=== PATIENT | male | born 1965 | race African-American/Black ===

== ENCOUNTER 2017-11-11 13:11 | Inpatient (IN) | payer OTHER ==
[2017-11-11 13:45] VITALS: BMI 27.5
--- NOTE | 2017-11-11 18:03 | HP ---
CIWA Score - CIWA Score Nausea/Vomitin Muscle Tremors: 3 Anxiety: 3 Agitation: 3 Paroxysmal Sweats: 3 Orientation: 0-Oriented Tacttile Disturbances: 1-Very Mild Itch/Numbness Auditory Disturbances: 0-None Visual Disturbances: 0-None Headache: 0-None Present CIWA-Ar Total Score: 16 Admission ROS S - HPI Allergies/Adverse Reactions: Allergies Allergy/AdvReac Type Severity Reaction Status Date / Time No Known Allergies Allergy Verified 11/11/17 16:06 History of Present Illness: "I am trying to get off these drugs and alcohol from my system' Exam Limitations: No Limitations - Ebola screening Have you traveled outside of the country in the last 21 days: No (N) Have you had contact with anyone from an Ebola affected area: No Have you been sick,other than usual withdrawal symptoms: No Do you have a fever: No - Review of Systems Constitutional: No Symptoms Reported EENT: reports: Other (wears bifocals) Respiratory: reports: No Symptoms reported Cardiac: reports: No Symptoms Reported GI: reports: Nausea : reports: No Symptoms Reported Musculoskeletal: reports: Back Pain (chronic pain) Integumentary: reports: No Symptoms Reported Neuro: reports: No Symptoms reported Endocrine: reports: No Symptoms Reported Hematology: reports: No Symptoms Reported Psychiatric: reports: Mood/Affect Appropiate, Orientated x3, Anxious Other Systems: Reviewed and Negative Patient History - Patient Medical History Hx Asthma: No Hx Chronic Obstructive Pulmonary Disease (COPD): No Hx Cancer: No Hx Cardiac Disorders: No Hx Hypertension: Yes (Norvasc, coreg, hydralazine, ASA) Hx Hypercholesterolemia: Yes Hx Pacemaker: No HX Cerebrovascular Accident: Yes (2012) Hx Seizures: No Hx Dementia: No Hx Diabetes: No Hx Gastrointestinal Disorders: No Hx Liver Disease: No Hx Genitourinary Disorders: No Hx Sexually Transmitted Disorders: No Hx Renal Disease (ESRD): No Hx Thyroid Disease: Yes (hyperparathyroidism) Hx Human Immunodeficiency Virus (HIV): No Hx Hepatitis C: No Hx Depression: Yes (Not on meds) Hx Suicide Attempt: No (denies curent SI) Hx Bipolar Disorder: No Hx Schizophrenia: No - Patient Surgical History Past Surgical History: No Hx Neurologic Surgery: No Hx Cataract Extraction: No Hx Cardiac Surgery: No Hx Lung Surgery: No Hx Breast Surgery: No Hx Breast Biopsy: No Hx Abdominal Surgery: No Hx Appendectomy: No Hx Cholecystectomy: No Hx Genitourinary Surgery: No Hx Section: No Hx Orthopedic Surgery: No Anesthesia Reaction: No - PPD History Previous Implant?: Yes Documented Results: Positive w/o proof (states he was treated x 6-9 months) Implanted On Prior R Admission?: No - Reproductive History Patient is a Female of Child Bearing Age (11 -55 yrs old): No - Smoking Cessation Smoking history: Smoker current status UNK Have you smoked in the past 12 months: Yes Aproximately how many cigarettes per day: 12 If you are a former smoker, when did you quit?: 2008 Hx Chewing Tobacco Use: No Initiated information on smoking cessation: Yes 'Breaking Loose' booklet given: 11/11/17 - Substance & Tx. History Hx Alcohol Use: Yes Hx Substance Use: Yes Substance Use Type: Alcohol, Cocaine - Substances Abused Alcohol Route: Oral Frequency: Daily Amount used: LIQUOR- 1 PINT, BEER- 2 (24oz) Age of first use: 23 Date of Last Use: 11/11/17 Cocaine Route: Smoking Frequency: Daily Amount used: 1/2 oz bag ($500) Age of first use: 22 Date of Last Use: 11/10/17 Family Disease History - Family Disease History Family Disease History: Heart Disease: Father (HTN) Admission Physical Exam BHS - Vital Signs Vital Signs: Vital Signs - 24 hr 11/11/17 13:44 Temperature 97.7 F Pulse Rate 98 H Respiratory 20 Rate Blood Pressure 111/68 - Physical General Appearance: Yes: Mild Distress, Sweating, Anxious HEENTM: Yes: Nasal Congestion Respiratory: Yes: Chest Non-Tender, Lungs Clear, No Respiratory Distress Neck: Yes: No masses,lesions,Nodules Breast: Yes: Breast Exam Deferred Cardiology: Yes: Regular Rate, S1, S2 Abdominal: Yes: Surgical Scar, Other (healed scar) Genitourinary: Yes: Within Normal Limits Back: Yes: Normal Inspection Musculoskeletal: Yes: Within Normal Limits Extremities: Yes: Within Normal Limits, Normal Range of Motion Neurological: Yes: Within Normal Limits, Motor Strength 5/5 Integumentary: Yes: Normal Color, Warm Lymphatic: Yes: Within Normal Limits - Diagnostic (1) Alcohol dependence, uncomplicated Current Visit: Yes Status: Acute (2) Cocaine dependence Current Visit: Yes Status: Acute (3) Essential (primary) hypertension Current Visit: Yes Status: Chronic (4) Hyperparathyroidism Current Visit: Yes Status: Acute (5) Depression Current Visit: Yes Status: Chronic (6) Post traumatic stress disorder (PTSD) Current Visit: Yes Status: Chronic BHS Breath Alcohol Content Breath Alcohol Content: 0.025 Urine Drug Screen - Results Drug Screen Negative: No Urine Drug Screen Results: MAURICE-Cocaine
[2017-11-11] MEDS ORDERED: hydrOXYzine PAMOATE 25 MG CAPSULE (FP) PO PRN (18:28)
[2017-11-11] MEDS ORDERED: IBUPROFEN 400 MG TABLET (FP) PO PRN (18:28)
[2017-11-11] MEDS ORDERED: P-EPHED 60MG/TRIPROLIDI 2.5MG TABLET PO PRN (18:28)
[2017-11-11] MEDS ORDERED: MAGNESIUM HYDROX 2400MG/30ML ORAL SUSPENSION 30 ML CUP PO PRN (18:28)
[2017-11-11] MEDS ORDERED: MAG HYDROX/AL HYDROX/SIMETH 30 ML UNIT-DOSE CUP PO PRN (18:28)
[2017-11-11] MEDS ORDERED: ACETAMINOPHEN 325 MG TABLET (FP) PO PRN (18:28)
[2017-11-11] MEDS ORDERED: MENTHOL/PHENOL 1 EACH UD MM PRN (18:28)
[2017-11-11] MEDS ORDERED: guaiFENesin/D-METHORPHAN HB 10 ML UNIT-DOSE CUPS PO PRN (18:28)
[2017-11-11] MEDS ORDERED: chlordiazePOXIDE HCL 25 MG CAPSULE PO PRN (18:28)
[2017-11-11] MEDS ORDERED: MAGNESIUM CITRATE 300 ML BOTTLE PO PRN (18:28)
[2017-11-11] MEDS ORDERED: LOPERAMIDE HCL 2 MG CAPSULE PO PRN (18:28)
[2017-11-11] MEDS: THIAMINE HCL 100 MG TABLET (FP) PO SCH (22:30)
[2017-11-11] MEDS: chlordiazePOXIDE HCL 25 MG CAPSULE PO SCH (22:30)
[2017-11-11] MEDS: CARVEDILOL 25 MG TABLET (FP) PO SCH (22:30)
[2017-11-11] MEDS: DOXAZOSIN MESYLATE 2 MG TABLET (FP) PO SCH (23:31)
[2017-11-11] MEDS: ROSUVASTATIN CA 20 MG TABLET (FP) PO SCH (23:31)
[2017-11-12] MEDS: chlordiazePOXIDE HCL 25 MG CAPSULE PO SCH ×4 (05:54→22:28)
[2017-11-12] MEDS ORDERED: hydrALAZINE HCL 50 MG TABLET (FP) PO SCH (10:00)
[2017-11-12 10:12] LABS: HEMATOCRIT 38.6 % (35.4-49); HEMOGLOBIN 13.3 GM/dL (11.7-16.9); MCHC 34.5 g/dl (32.0-35.9); MEAN CELL VOLUME 89.9 fl (80-96); MEAN PLT VOLUME 9.2 fl (7.5-11.1); PLATELET COUNT 196 K/MM3 (134-434); RDW 13.5 % (11.9-15.9); WHITE BLOOD COUNT 4.5 K/mm3 (4.0-10.0)
[2017-11-12 10:17] LABS: CHLORIDE 110 mmol/L (98-107); POTASSIUM 3.3 mmol/L (3.5-5.1); SODIUM 144 mmol/L (136-145)
[2017-11-12 10:28] LABS: ALBUMIN 3.5 g/dl (3.4-5.0); ALK PHOS 49 U/L (45-117); ANION GAP 7 (8-16); BILIRUBIN,TOTAL 0.3 mg/dL (0.2-1.0); BLOOD UREA NITROGEN 16 mg/dL (7-18); CALCIUM 8.8 mg/dL (8.5-10.1); CO2 27 mmol/L (21-32); CREATININE 1.1 mg/dL (0.7-1.3); GLUCOSE,RANDOM 95 mg/dL (74-106); SGOT/AST 10 U/L (15-37); SGPT/ALT 24 U/L (12-78)
--- NOTE | 2017-11-12 10:46 | CONSULT ---
[facility] Psychiatric Consult - Data Date of interview: 11/12/17 Admission source: [facility] Identifying data: "I am trying to get off these drugs and alcohol from my system '
--- NOTE | 2017-11-12 10:47 | CONSULT ---
[facility] Psychiatric Consult - Data Identifying data: This nis 51 years old obese male , , father of six, living with family, employed, is here for detoxification due to Alcohol depedndency. Substance Abuse History: - Smoking Cessation. Smoking history: Smoker current status UNK. Have you smoked in the past 12 months: Yes. Aproximately how many cigarettes per day: 12. If you are a former smoker, when did you quit?: 2008. Hx Chewing Tobacco Use: No. Initiated information on smoking cessation: Yes. ' Breaking Loose' booklet given: 11/11/17. - Substance & Tx. History. Hx Alcohol Use: Yes. Hx Substance Use: Yes. Substance Use Type: Alcohol, Cocaine. - Substances Abused. Alcohol. Route: Oral. Frequency: Daily. Amount used: LIQUOR- 1 PINT, BEER- 2 (24oz). Age of first use: 23. Date of Last Use: 11/11/17. Cocaine. Route: Smoking. Frequency: Daily. Amount used: 1/2 oz bag ($500). Age of first use: 22. Date of Last Use: 11/10/17 Medical History: Hyperthyroidism history Psychiatric History: Denies past psychiatric history, reports no psychiatric medications intake prior to admission. As per computer PTSD history Physical/Sexual Abuse/Trauma History: Denies Additional Comment: Observatrion. Detox Unit Care protocol Mental Status Exam - Mental Status Exam Alert and Oriented to: Person Cognitive Function: Fair Patient Appearance: Well Groomed Mood: Apprehensive Patient Behavior: Cooperative Speech Pattern: Appropriate Voice Loudness: Normal Thought Process: Goal Oriented Thought Disorder: Being Controlled Hallucinations: Denies Suicidal Ideation: Denies Homicidal Ideation: Denies Insight/Judgement: Fair Sleep: Difficulty falling asleep Appetite: Weight gain Muscle strength/Tone: Normal Gait/Station: Shuffling Additional Comments: Observatrion. Detox Unit Care protocol Psychiatric Findings - Problem List ([place] 1, 2,3) (1) Drug-induced mood disorder Current Visit: Yes Status: Acute (2) Alcohol dependence, uncomplicated Current Visit: Yes Status: Acute (3) Cocaine dependence Current Visit: Yes Status: Acute (4) Post traumatic stress disorder (PTSD) Current Visit: Yes Status: Chronic - Initial Treatment Plan Initial Treatment Plan: Observatrion. Detox Unit Care protocol
[2017-11-12] MEDS: amLODIPine BESYLATE 10 MG TABLET (FP) PO SCH (10:59)
[2017-11-12] MEDS: PRENATAL VITAMINS W/ FOLIC ACID TABLET (FP) PO SCH (10:59)
[2017-11-12] MEDS: ASPIRIN 81 MG CHEWABLE TABLETS PO SCH (10:59)
[2017-11-12] MEDS: CHOLECALCIFEROL (VITAMIN D3) 1,000 UNIT TABLET (FP) PO SCH (11:00)
--- NOTE | 2017-11-12 12:25 | PN ---
S CIWA - CIWA Score Nausea/Vomitin Muscle Tremors: 3 Anxiety: 3 Agitation: 2 Paroxysmal Sweats: 1-Minimal Palms Moist Orientation: 0-Oriented Tacttile Disturbances: 1-Very Mild Itch/Numbness Auditory Disturbances: 1-Very Mild Visual Disturbances: 0-None Headache: 2-Mild CIWA-Ar Total Score: 16 BHS Progress Note (SOAP) Subjective: ALERT,IRRITABLE,ANXIOUS,INTERRUPTED SLEEP,TREMOR Objective: 11/12/17 12:22 Vital Signs Temperature 97.3 F L 11/12/17 10:35 Pulse Rate 70 11/12/17 10:35 Respiratory Rate 20 11/12/17 10:35 Blood Pressure 147/101 11/12/17 10:35 O2 Sat by Pulse Oximetry (%) EKG NSR WITH SINUS ARRHYTHMIA Laboratory Last Values WBC 4.5 K/mm3 (4.0-10.0) 11/12/17 07:00 RBC 4.30 M/mm3 (4.00-5.60) 11/12/17 07:00 Hgb 13.3 GM/dL (11.7-16.9) 11/12/17 07:00 Hct 38.6 % (35.4-49) 11/12/17 07:00 MCV 89.9 fl (80-96) 11/12/17 07:00 MCH 31.0 pg (25.7-33.7) 11/12/17 07:00 MCHC 34.5 g/dl (32.0-35.9) 11/12/17 07:00 RDW 13.5 % (11.9-15.9) 11/12/17 07:00 Plt Count 196 K/MM3 (134-434) 11/12/17 07:00 MPV 9.2 fl (7.5-11.1) 11/12/17 07:00 Sodium 144 mmol/L (136-145) 11/12/17 07:00 Potassium 3.3 mmol/L (3.5-5.1) L 11/12/17 07:00 Chloride 110 mmol/L (98-107) H 11/12/17 07:00 Carbon Dioxide 27 mmol/L (21-32) 11/12/17 07:00 Anion Gap 7 (8-16) L 11/12/17 07:00 BUN 16 mg/dL (7-18) 11/12/17 07:00 Creatinine 1.1 mg/dL (0.7-1.3) 11/12/17 07:00 Creat Clearance w eGFR > 60 (>60) 11/12/17 07:00 Random Glucose 95 mg/dL (74-106) 11/12/17 07:00 Calcium 8.8 mg/dL (8.5-10.1) 11/12/17 07:00 Total Bilirubin 0.3 mg/dL (0.2-1.0) 11/12/17 07:00 AST 10 U/L (15-37) L 11/12/17 07:00 ALT 24 U/L (12-78) 11/12/17 07:00 Alkaline Phosphatase 49 U/L (45-117) 11/12/17 07:00 Total Protein 6.0 g/dl (6.4-8.2) L 11/12/17 07:00 Albumin 3.5 g/dl (3.4-5.0) 11/12/17 07:00 RPR Titer Nonreactive (NONREACTIVE) 11/12/17 07:00 HIV 1&2 Antibody Screen Negative 11/12/17 07:00 HIV P24 Antigen Negative 11/12/17 07:00 11/12/17 12:24 EKG NSR WITH SINUS ARRHYTHMIA NORMAL ECG Assessment: 11/12/17 12:24 WITHDRAWAL SYMPTOM Plan: WITHDRAWAL SYMPTOM.CONTINUE DETOX,K DUR 20 MEQ PO DAILY ,REPEAT K IN AM
[2017-11-12] MEDS: CARVEDILOL 25 MG TABLET (FP) PO SCH (13:17)
[2017-11-12] MEDS: hydrALAZINE HCL 50 MG TABLET (FP) PO SCH ×2 (13:21→22:28)
[2017-11-12] MEDS: CARVEDILOL 12.5 MG TABLET (FP) PO SCH ×2 (13:21→22:28)
[2017-11-12] MEDS ORDERED: POTASSIUM CHLORIDE TABS 20 MEQ TABLET.ER (FP) PO ONE (13:30)
--- NOTE | 2017-11-12 16:07 | EKG ---
Test Reason : Blood Pressure : / mmHG Vent. Rate : 059 BPM Atrial Rate : 059 BPM P-R Int : 144 ms QRS Dur : 090 ms QT Int : 364 ms P-R-T Axes : 050 037 -13 degrees QTc Int : 360 ms SINUS BRADYCARDIA NONSPECIFIC T WAVE ABNORMALITY ABNORMAL ECG NO PREVIOUS ECGS AVAILABLE Confirmed by AMMON HENNESSY MD ([id number]) on 11/12/2017 4:06:53 PM Referred By: Confirmed By:AMMON HENNESSY MD
[2017-11-12] MEDS: THIAMINE HCL 100 MG TABLET (FP) PO SCH (22:28)
[2017-11-12] MEDS: DOXAZOSIN MESYLATE 2 MG TABLET (FP) PO SCH (22:28)
[2017-11-12] MEDS: ROSUVASTATIN CA 20 MG TABLET (FP) PO SCH (23:34)
[2017-11-13] MEDS: chlordiazePOXIDE HCL 25 MG CAPSULE PO SCH ×3 (06:09→17:42)
[2017-11-13] MEDS: hydrALAZINE HCL 50 MG TABLET (FP) PO SCH ×3 (06:09→22:20)
[2017-11-13] MEDS: ASPIRIN 81 MG CHEWABLE TABLETS PO SCH (10:13)
[2017-11-13] MEDS: POTASSIUM CHLORIDE TABS 20 MEQ TABLET.ER (FP) PO SCH (10:14)
[2017-11-13] MEDS: PRENATAL VITAMINS W/ FOLIC ACID TABLET (FP) PO SCH (10:14)
[2017-11-13] MEDS: amLODIPine BESYLATE 10 MG TABLET (FP) PO SCH (10:14)
[2017-11-13] MEDS: CARVEDILOL 12.5 MG TABLET (FP) PO SCH ×2 (10:15→22:20)
[2017-11-13] MEDS: CHOLECALCIFEROL (VITAMIN D3) 1,000 UNIT TABLET (FP) PO SCH (10:15)
--- NOTE | 2017-11-13 12:12 | PN ---
BHS CIWA - CIWA Score Nausea/Vomitin Muscle Tremors: 3 Anxiety: 2 Agitation: 2 Paroxysmal Sweats: 1-Minimal Palms Moist Orientation: 0-Oriented Tacttile Disturbances: 1-Very Mild Itch/Numbness Auditory Disturbances: 1-Very Mild Visual Disturbances: 0-None Headache: 2-Mild CIWA-Ar Total Score: 15 BHS Progress Note (SOAP) Subjective: ALERT,IRRITABLE,ANXIOUS,INTERRUPTED SLEEP,TREMOR Objective: 11/13/17 12:11 Vital Signs Temperature 97 F L 11/13/17 10:04 Pulse Rate 78 11/13/17 10:04 Respiratory Rate 20 11/13/17 10:04 Blood Pressure 155/96 11/13/17 10:04 O2 Sat by Pulse Oximetry (%) REPEAT K IS 3.4 Assessment: 11/13/17 12:12 WITHDRAWAL SYMPTOM Plan: CONTINUE DETOX
[2017-11-13 15:36] LABS: URINE APPEARANCE CLEAR; URINE BILIRUBIN NEGATIVE (NEGATIVE); URINE BLOOD NEGATIVE (NEGATIVE); URINE COLOR STRAW; URINE GLUCOSE (UA) NEGATIVE (NEGATIVE); URINE KETONE NEGATIVE (NEGATIVE); URINE LEUK ESTERASE NEGATIVE (NEGATIVE); URINE NITRITE NEGATIVE (NEGATIVE); URINE PROTEIN NEGATIVE (NEGATIVE); URINE UROBILINOGEN NEGATIVE mg/dL (0.2-1.0)
[2017-11-13] MEDS: THIAMINE HCL 100 MG TABLET (FP) PO SCH (22:19)
[2017-11-13] MEDS: chlordiazePOXIDE 5 MG CAPSULE PO SCH (22:19)
[2017-11-13] MEDS: ROSUVASTATIN CA 20 MG TABLET (FP) PO SCH (22:20)
[2017-11-13] MEDS: DOXAZOSIN MESYLATE 2 MG TABLET (FP) PO SCH (22:20)
[2017-11-14] MEDS: amLODIPine BESYLATE 10 MG TABLET (FP) PO SCH (05:39)
[2017-11-14] MEDS: chlordiazePOXIDE 5 MG CAPSULE PO SCH ×3 (05:39→17:36)
[2017-11-14] MEDS: CARVEDILOL 12.5 MG TABLET (FP) PO SCH ×2 (05:43→22:34)
[2017-11-14] MEDS: hydrALAZINE HCL 50 MG TABLET (FP) PO SCH ×3 (05:45→22:34)
[2017-11-14] MEDS: ASPIRIN 81 MG CHEWABLE TABLETS PO SCH (10:14)
[2017-11-14] MEDS: PRENATAL VITAMINS W/ FOLIC ACID TABLET (FP) PO SCH (10:14)
[2017-11-14] MEDS: POTASSIUM CHLORIDE TABS 20 MEQ TABLET.ER (FP) PO SCH (10:14)
[2017-11-14] MEDS: CHOLECALCIFEROL (VITAMIN D3) 1,000 UNIT TABLET (FP) PO SCH (10:14)
--- NOTE | 2017-11-14 13:05 | PN ---
BHS Progress Note (SOAP) Subjective: ALERT,INTERRUPTED SLEEP Objective: 11/14/17 13:04 Vital Signs Temperature 96.8 F L 11/14/17 10:39 Pulse Rate 78 11/14/17 10:39 Respiratory Rate 2 L 11/14/17 10:39 Blood Pressure 142/84 11/14/17 10:39 O2 Sat by Pulse Oximetry (%) Assessment: 11/14/17 13:04 WITHDRAWAL SYMPTOM Plan: CONTINUED DETOX
[2017-11-14] MEDS: THIAMINE HCL 100 MG TABLET (FP) PO SCH (22:33)
[2017-11-14] MEDS: chlordiazePOXIDE HCL 10 MG CAPSULE PO SCH (22:33)
[2017-11-14] MEDS: ROSUVASTATIN CA 20 MG TABLET (FP) PO SCH (22:34)
[2017-11-14] MEDS: DOXAZOSIN MESYLATE 2 MG TABLET (FP) PO SCH (22:35)
[2017-11-15 06:17] VITALS: BP 129/77; PULSE 76; TEMP 97
[2017-11-15] MEDS: chlordiazePOXIDE HCL 10 MG CAPSULE PO SCH (06:39)
[2017-11-15] MEDS: CARVEDILOL 12.5 MG TABLET (FP) PO SCH (06:40)
[2017-11-15] MEDS: hydrALAZINE HCL 50 MG TABLET (FP) PO SCH (06:40)
[2017-11-15] MEDS: amLODIPine BESYLATE 10 MG TABLET (FP) PO SCH (06:41)
--- NOTE | 2017-11-15 08:12 | PN ---
S Progress Note (SOAP) Subjective: ALERT,NO COMPLAINT Objective: 11/15/17 08:10 Vital Signs Temperature 97.0 F L 11/15/17 06:00 Pulse Rate 76 11/15/17 06:00 Respiratory Rate 18 11/15/17 06:00 Blood Pressure 129/77 11/15/17 06:00 O2 Sat by Pulse Oximetry (%) Assessment: 11/15/17 08:11 DETOX COMPLETED,NO WITHDRAWAL SYMPTOM Plan: DISCHARGE TODAY,FOLLOW UP WITH AFTER CARE PROGRAM ARRANGEMENT
--- NOTE | 2017-11-15 08:18 | DS ---
[facility] Detox Discharge Summary Admission Date: 11/11/17 Discharge Date: 11/15/17 - History Present History: Alcohol Dependence, Cocaine Dependence Additional Comments: FOLLOW UP WITH AFTER CARE PROGRAM ARRANGEMENT Pertinent Past History: ESSENTIAL HYPERTENSION PTSD HYPERCHOLESTEROLEMIA - Physical Exam Results Vital Signs: Vital Signs Temperature 97.0 F L 11/15/17 06:00 Pulse Rate 76 11/15/17 06:00 Respiratory Rate 18 11/15/17 06:00 Blood Pressure 129/77 11/15/17 06:00 O2 Sat by Pulse Oximetry (%) Pertinent Admission Physical Exam Findings: WITHDRAWAL SIGNS AND SYMPTOM Vital Signs Temperature 97.0 F L 11/15/17 06:00 Pulse Rate 76 11/15/17 06:00 Respiratory Rate 18 11/15/17 06:00 Blood Pressure 129/77 11/15/17 06:00 O2 Sat by Pulse Oximetry (%) - Treatment Hospital Course: Detox Protocol Followed, Detoxed Safely, Responded well, Discharged Condition Good, Rehab Referral Accepted Patient has Accepted a Rehab Referral to: [facility] - Medication Discharge Medications: Ambulatory Orders Amlodipine Besylate [Norvasc -] 10 mg PO DAILY 11/11/17 Aspirin [ASA -] 81 mg PO DAILY 11/11/17 Carvedilol [Coreg -] 25 mg PO BID 11/11/17 Cholecalciferol (Vitamin D3) [Vitamin D3 -] 1,000 unit PO DAILY 11/11/17 Doxazosin Mesylate [Cardura -] 2 mg PO HS 11/11/17 Gabapentin/Lidocaine/Menthol [Smartrx Gabakit] 1 each MC BID 11/11/17 Rosuvastatin Calcium [Crestor] 20 mg PO HS 11/11/17 hydrALAZINE HCL [Apresoline -] 50 mg PO DAILY 11/11/17 - Diagnosis (1) Alcohol dependence, uncomplicated Current Visit: Yes Status: Acute (2) Cocaine dependence Current Visit: Yes Status: Acute (3) Drug-induced mood disorder Current Visit: Yes Status: Acute (4) Essential (primary) hypertension Current Visit: Yes Status: Chronic (5) Post traumatic stress disorder (PTSD) Current Visit: Yes Status: Chronic (6) Hypokalemia Current Visit: Yes Status: Acute (7) Hypercholesterolemia Current Visit: Yes Status: Acute - AMA Did Patient Leave Against Medical Advice: No
== END 2017-11-15 09:21 | disposition home or self-care (01) | DRG 774 ==
LOC: YASAS 13:11 → Y6N 15:52
PROVIDERS: ADMIT Internal Medicine; ATTEND Internal Medicine
PROC: HZ2ZZZZ Detoxification Services for Substance Abuse Treatment (ICD-10-PCS; principal; 2017-11-11)
DX: F10.230 Alcohol dependence with withdrawal, uncomplicated (principal); F14.20 Cocaine dependence, uncomplicated; F43.10 Post-traumatic stress disorder, unspecified; F19.24 Other psychoactive substance dependence with psychoactive substance-induced mood disorder; I10 Essential (primary) hypertension; E78.00 Pure hypercholesterolemia, unspecified; E87.6 Hypokalemia; E21.3 Hyperparathyroidism, unspecified
CPT/HCPCS: 36415; 71046-TC-FY; 80053; 81003; 84132; 85027; 86593; 87389; 93005; 93010

== ENCOUNTER 2018-06-22 19:12 | Inpatient (IN) | payer OTHER ==
[2018-06-22 19:29] VITALS: BMI 32.8
--- NOTE | 2018-06-22 20:51 | HP ---
CIWA Score - CIWA Score Nausea/Vomitin Muscle Tremors: 2 Anxiety: 2 Agitation: 2 Paroxysmal Sweats: 1-Minimal Palms Moist Orientation: 0-Oriented Tacttile Disturbances: 1-Very Mild Itch/Numbness Auditory Disturbances: 1-Very Mild Visual Disturbances: 1-Very Mild Sensitivity Headache: 2-Mild CIWA-Ar Total Score: 14 Admission ROS BHS - HPI Chief Complaint: i need help to stop drinking alcohol and cocaine and marijuana Allergies/Adverse Reactions: Allergies Allergy/AdvReac Type Severity Reaction Status Date / Time No Known Allergies Allergy Verified 06/22/18 21:18 History of Present Illness: this 52 years old male with alcohol,cocaine and marijuana dependence seeking detox,withdrawal symptom, last detox [facility] 11/11/17 to 11/15/17 syncope alcohol related hypertension hypercholestrolemia depression,ptsd non compliance longest period of sobriety 8 years old cva with [facility] left in 2012 Exam Limitations: No Limitations - Ebola screening Have you traveled outside of the country in the last 21 days: No (N) Have you had contact with anyone from an Ebola affected area: No Have you been sick,other than usual withdrawal symptoms: No Do you have a fever: No - Review of Systems Constitutional: Loss of Appetite, Malaise, Night Sweats, Changes in sleep, Unintentional Wgt. Loss EENT: reports: Nose Congestion Cardiac: reports: No Symptoms Reported GI: reports: Diarrhea, Nausea, Poor Appetite : reports: No Symptoms Reported Musculoskeletal: reports: Back Pain, Muscle Pain Integumentary: reports: Dryness Neuro: reports: Headache, Tremors Endocrine: reports: No Symptoms Reported Hematology: reports: No Symptoms Reported Psychiatric: reports: No Sypmtoms Reported, Judgement Intact, Mood/Affect Appropiate, Orientated x3, Depressed Other Systems: Reviewed and Negative (ptsd) Patient History - Patient Medical History Hx Anemia: No Hx Asthma: No Hx Chronic Obstructive Pulmonary Disease (COPD): No Hx Cancer: No Hx Cardiac Disorders: No Hx Hypertension: Yes (Norvasc, coreg, hydralazine, ASA) Hx Hypercholesterolemia: Yes Hx Pacemaker: No HX Cerebrovascular Accident: Yes (2012 [facility]) Hx Seizures: No Hx Dementia: No Hx Diabetes: No Hx Gastrointestinal Disorders: No Hx Liver Disease: No Hx Genitourinary Disorders: No Hx Sexually Transmitted Disorders: No Hx Renal Disease (ESRD): No Hx Thyroid Disease: Yes (hyperparathyroidism has appointment in 08/20) Hx Human Immunodeficiency Virus (HIV): No (last 11/18) Hx Hepatitis C: No Hx Depression: Yes (Not on meds) Hx Suicide Attempt: No (denies curent SI) Hx Bipolar Disorder: No Hx Schizophrenia: No Other Medical History: no suicidal,no homicidal - Patient Surgical History Past Surgical History: No Hx Neurologic Surgery: No Hx Cataract Extraction: No Hx Cardiac Surgery: No Hx Lung Surgery: No Hx Breast Surgery: No Hx Breast Biopsy: No Hx Abdominal Surgery: No Hx Appendectomy: No Hx Cholecystectomy: No Hx Genitourinary Surgery: No Hx Section: No Hx Orthopedic Surgery: No Anesthesia Reaction: No - PPD History Previous Implant?: Yes Documented Results: Positive w/proof Implanted On Prior [facility] Admission?: No PPD to be Administered?: No - Smoking Cessation Smoking history: Never smoked Have you smoked in the past 12 months: No - Substance & Tx. History Hx Alcohol Use: Yes Hx Substance Use: Yes Substance Use Type: Alcohol, Cocaine, Marijuana Hx Substance Use Treatment: Yes (11/11/17 to 11/15/17 [facility]) - Substances Abused Alcohol Route: Oral Frequency: Daily Amount used: 1pint of vodka Age of first use: 23 Date of Last Use: 06/22/18 Cocaine Route: Smoking Frequency: 3-6 times per week Amount used: 300$ Age of first use: 41 Date of Last Use: 06/22/18 Marijuana/Hashish Route: Smoking Frequency: 1-3 times last 30 days Amount used: 10$ Age of first use: 17 Date of Last Use: 06/07/18 Family Disease History - Family Disease History Family Disease History: Heart Disease: Father (HTN) Admission Physical Exam S - Vital Signs Vital Signs: Vital Signs - 24 hr 06/22/18 19:19 Temperature 97.8 F Pulse Rate 94 H Respiratory 18 Rate Blood Pressure 150/100 - Physical General Appearance: Yes: Moderate Distress, Tremorous, Irritable, Sweating, Anxious HEENTM: Yes: [place]ANCIS[place] Respiratory: Yes: Within Normal Limits, Lungs Clear, Normal Breath Sounds, No Respiratory Distress Neck: Yes: Within Normal Limits, Supple, Trachea in good position Breast: Yes: Within Normal Limits Cardiology: Yes: Within Normal Limits, Regular Rhythm, Regular Rate, S1, S2 Abdominal: Yes: Within Normal Limits, Normal Bowel Sounds, Non Tender, Flat, Soft Genitourinary: Yes: Within Normal Limits Back: Yes: Muscle Spasm Extremities: Yes: Within Normal Limits, Tremors Neurological: Yes: yarn salvager II-XII NML intact, Fully Oriented, Alert, Motor Strength 5/5 Integumentary: Yes: Dry Lymphatic: Yes: Within Normal Limits - Diagnostic (1) Alcohol dependence, uncomplicated Current Visit: No Status: Acute (2) Cannabis dependence Current Visit: Yes Status: Acute (3) Cocaine dependence Current Visit: No Status: Acute (4) Hypercholesterolemia Current Visit: No Status: Acute (5) Hyperparathyroidism Current Visit: No Status: Acute (6) Depression Current Visit: No Status: Chronic (7) Essential (primary) hypertension Current Visit: No Status: Chronic (8) Post traumatic stress disorder (PTSD) Current Visit: No Status: Chronic (9) Syncope Current Visit: Yes Status: Acute Cleared for Admission [facility] - Detox or Rehab [facility] Level of Care: Medically Managed Detox Regimen/Protocol: Librium [facility] Breath Alcohol Content Breath Alcohol Content: 0.067 Urine Drug Screen - Results Drug Screen Negative: No Urine Drug Screen Results: MAURICE-Cocaine
[2018-06-22] MEDS ORDERED: ACETAMINOPHEN 325 MG TABLET (FP) PO PRN (21:12)
[2018-06-22] MEDS ORDERED: MAG HYDROX/AL HYDROX/SIMETH 30 ML UNIT-DOSE CUP PO PRN (21:12)
[2018-06-22] MEDS ORDERED: guaiFENesin/D-METHORPHAN HB 10 ML UNIT-DOSE CUPS PO PRN (21:12)
[2018-06-22] MEDS ORDERED: IBUPROFEN 400 MG TABLET (FP) PO PRN (21:12)
[2018-06-22] MEDS ORDERED: MAGNESIUM CITRATE 300 ML BOTTLE PO PRN (21:12)
[2018-06-22] MEDS ORDERED: MAGNESIUM HYDROX 2400MG/30ML ORAL SUSPENSION 30 ML CUP PO PRN (21:12)
[2018-06-22] MEDS ORDERED: P-EPHED 60MG/TRIPROLIDI 2.5MG TABLET PO PRN (21:12)
[2018-06-22] MEDS ORDERED: chlordiazePOXIDE HCL 25 MG CAPSULE PO PRN (21:12)
[2018-06-22] MEDS ORDERED: LOPERAMIDE HCL 2 MG CAPSULE PO PRN (21:12)
[2018-06-22] MEDS ORDERED: MENTHOL/PHENOL 1 EACH UD MM PRN (21:12)
[2018-06-22] MEDS ORDERED: MELATONIN 5 MG TABLETS PO PRN (22:00)
[2018-06-22] MEDS: THIAMINE HCL 100 MG TABLET (FP) PO SCH (22:48)
[2018-06-22] MEDS: chlordiazePOXIDE HCL 25 MG CAPSULE PO SCH (22:49)
[2018-06-22] MEDS: CARVEDILOL 12.5 MG TABLET (FP) PO SCH (22:49)
[2018-06-22] MEDS: hydrALAZINE HCL 50 MG TABLET (FP) PO SCH (23:42)
[2018-06-22] MEDS: DOXAZOSIN MESYLATE 2 MG TABLET (FP) PO SCH (23:43)
[2018-06-22] MEDS: ROSUVASTATIN CA 20 MG TABLET (FP) PO SCH (23:45)
[2018-06-23] MEDS: CARVEDILOL 12.5 MG TABLET (FP) PO SCH ×2 (06:46→22:23)
[2018-06-23] MEDS: hydrALAZINE HCL 50 MG TABLET (FP) PO SCH ×3 (06:46→23:12)
[2018-06-23] MEDS: chlordiazePOXIDE HCL 25 MG CAPSULE PO SCH ×4 (06:46→22:23)
[2018-06-23 09:59] LABS: HEMATOCRIT 41.5 % (35.4-49); HEMOGLOBIN 13.8 GM/dL (11.7-16.9); MCH 29.7 pg (25.7-33.7); MCHC 33.3 g/dl (32.0-35.9); MEAN CELL VOLUME 89.2 fl (80-96); MEAN PLT VOLUME 9.2 fl (7.5-11.1); PLATELET COUNT 199 K/MM3 (134-434); RBC 4.65 M/mm3 (4.00-5.60); RDW 13.2 % (11.9-15.9); WHITE BLOOD COUNT 4.8 K/mm3 (4.0-10.0)
[2018-06-23 10:18] LABS: ALBUMIN 3.4 g/dl (3.4-5.0); ALK PHOS 52 U/L (45-117); ANION GAP 8 MMOL/L (8-16); BILIRUBIN,TOTAL 0.3 mg/dL (0.2-1); BLOOD UREA NITROGEN 17 mg/dL (7-18); CALCIUM 9.1 mg/dL (8.5-10.1); CHLORIDE 110 mmol/L (98-107); CO2 30 mmol/L (21-32); CREATININE 1.2 mg/dL (0.55-1.3); GLUCOSE,RANDOM 90 mg/dL (74-106); POTASSIUM 3.2 mmol/L (3.5-5.1); SGOT/AST 8 U/L (15-37); SGPT/ALT 23 U/L (13-61); SODIUM 148 mmol/L (136-145)
[2018-06-23] MEDS: amLODIPine BESYLATE 10 MG TABLET (FP) PO SCH (10:41)
[2018-06-23] MEDS: ASPIRIN 81 MG CHEWABLE TABLETS PO SCH (10:41)
[2018-06-23] MEDS: PRENATAL VITAMINS W/ FOLIC ACID TABLET (FP) PO SCH (10:41)
--- NOTE | 2018-06-23 11:12 | EKG ---
Test Reason : Blood Pressure : / mmHG Vent. Rate : 087 BPM Atrial Rate : 087 BPM P-R Int : 144 ms QRS Dur : 090 ms QT Int : 370 ms P-R-T Axes : 036 -11 -18 degrees QTc Int : 445 ms NORMAL SINUS RHYTHM POSSIBLE LEFT ATRIAL ENLARGEMENT LEFT VENTRICULAR HYPERTROPHY NONSPECIFIC ST AND T WAVE ABNORMALITY ABNORMAL ECG WHEN COMPARED WITH ECG OF 11-NOV-2017 18:19, QT HAS LENGTHENED Confirmed by CURTIS MORA, NIKI ([id number]) on 06/23/2018 11:11:47 AM Referred By: Confirmed By:NIKI ACEVEDO MD
--- NOTE | 2018-06-23 11:24 | PN ---
S CIWA - CIWA Score Nausea/Vomitin-Mild Nausea/No Vomiting Muscle Tremors: 3 Anxiety: 2 Agitation: 2 Paroxysmal Sweats: 1-Minimal Palms Moist Orientation: 1-Uncertain about Date Tacttile Disturbances: 1-Very Mild Itch/Numbness Auditory Disturbances: 1-Very Mild Visual Disturbances: 0-None Headache: 1-Very Mild CIWA-Ar Total Score: 13 BHS Progress Note (SOAP) Subjective: sweat tremor restlessness anxiety trouble sleep at night Objective: 06/23/18 11:23 Vital Signs Temperature 97.7 F 06/23/18 09:36 Pulse Rate 71 06/23/18 09:36 Respiratory Rate 16 06/23/18 09:36 Blood Pressure 107/65 06/23/18 09:36 O2 Sat by Pulse Oximetry (%) Laboratory Last Values WBC 4.8 K/mm3 (4.0-10.0) 06/23/18 07:30 RBC 4.65 M/mm3 (4.00-5.60) 06/23/18 07:30 Hgb 13.8 GM/dL (11.7-16.9) 06/23/18 07:30 Hct 41.5 % (35.4-49) 06/23/18 07:30 MCV 89.2 fl (80-96) 06/23/18 07:30 MCH 29.7 pg (25.7-33.7) 06/23/18 07:30 MCHC 33.3 g/dl (32.0-35.9) 06/23/18 07:30 RDW 13.2 % (11.9-15.9) 06/23/18 07:30 Plt Count 199 K/MM3 (134-434) 06/23/18 07:30 MPV 9.2 fl (7.5-11.1) 06/23/18 07:30 Sodium 148 mmol/L (136-145) H 06/23/18 07:30 Potassium 3.2 mmol/L (3.5-5.1) L 06/23/18 07:30 Chloride 110 mmol/L (98-107) H 06/23/18 07:30 Carbon Dioxide 30 mmol/L (21-32) 06/23/18 07:30 Anion Gap 8 MMOL/L (8-16) 06/23/18 07:30 BUN 17 mg/dL (7-18) 06/23/18 07:30 Creatinine 1.2 mg/dL (0.55-1.3) 06/23/18 07:30 Creat Clearance w eGFR > 60 (>60) 06/23/18 07:30 Random Glucose 90 mg/dL (74-106) 06/23/18 07:30 Calcium 9.1 mg/dL (8.5-10.1) 06/23/18 07:30 Total Bilirubin 0.3 mg/dL (0.2-1) 06/23/18 07:30 AST 8 U/L (15-37) L 06/23/18 07:30 ALT 23 U/L (13-61) 06/23/18 07:30 Alkaline Phosphatase 52 U/L (45-117) 06/23/18 07:30 Total Protein 6.0 g/dl (6.4-8.2) L 06/23/18 07:30 Albumin 3.4 g/dl (3.4-5.0) 06/23/18 07:30 RPR Titer Nonreactive (NONREACTIVE) 06/23/18 07:30 HIV 1&2 Antibody Screen Negative 06/23/18 07:30 HIV P24 Antigen Negative 06/23/18 07:30 lab noted K+ supplement Assessment: 06/23/18 11:23 withdrawal sx low K+ Plan: continue detox K+ supplement
[2018-06-23] MEDS: POTASSIUM CHLORIDE TABS 20 MEQ TABLET.ER (FP) PO SCH ×2 (14:16→22:23)
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
[2018-06-23] MEDS: THIAMINE HCL 100 MG TABLET (FP) PO SCH (22:26)
[2018-06-23] MEDS: hydrOXYzine PAMOATE 50 MG CAPSULE (FP) PO PRN (22:26)
[2018-06-23] MEDS: DOXAZOSIN MESYLATE 2 MG TABLET (FP) PO SCH (23:12)
[2018-06-23] MEDS: ROSUVASTATIN CA 20 MG TABLET (FP) PO SCH (23:13)
[2018-06-24] MEDS: chlordiazePOXIDE HCL 25 MG CAPSULE PO SCH ×3 (08:31→17:59)
[2018-06-24] MEDS: PRENATAL VITAMINS W/ FOLIC ACID TABLET (FP) PO SCH (10:10)
[2018-06-24] MEDS: amLODIPine BESYLATE 10 MG TABLET (FP) PO SCH (10:11)
[2018-06-24] MEDS: ASPIRIN 81 MG CHEWABLE TABLETS PO SCH (10:11)
[2018-06-24] MEDS: POTASSIUM CHLORIDE TABS 20 MEQ TABLET.ER (FP) PO SCH ×2 (10:11→22:30)
--- NOTE | 2018-06-24 12:19 | PN ---
[facility] CIWA - CIWA Score Nausea/Vomitin-No Nausea/No Vomiting Muscle Tremors: 3 Anxiety: 2 Agitation: 2 Paroxysmal Sweats: 1-Minimal Palms Moist Orientation: 0-Oriented Tacttile Disturbances: 1-Very Mild Itch/Numbness Auditory Disturbances: 0-None Visual Disturbances: 0-None Headache: 1-Very Mild CIWA-Ar Total Score: 10 S Progress Note (SOAP) Subjective: sweat tremor anxiety restlessness trouble sleep at night Objective: 06/24/18 12:19 Vital Signs Temperature 98.0 F 06/24/18 09:36 Pulse Rate 65 06/24/18 09:36 Respiratory Rate 18 06/24/18 09:36 Blood Pressure 129/80 06/24/18 09:36 O2 Sat by Pulse Oximetry (%) Laboratory Last Values WBC 4.8 K/mm3 (4.0-10.0) 06/23/18 07:30 RBC 4.65 M/mm3 (4.00-5.60) 06/23/18 07:30 Hgb 13.8 GM/dL (11.7-16.9) 06/23/18 07:30 Hct 41.5 % (35.4-49) 06/23/18 07:30 MCV 89.2 fl (80-96) 06/23/18 07:30 MCH 29.7 pg (25.7-33.7) 06/23/18 07:30 MCHC 33.3 g/dl (32.0-35.9) 06/23/18 07:30 RDW 13.2 % (11.9-15.9) 06/23/18 07:30 Plt Count 199 K/MM3 (134-434) 06/23/18 07:30 MPV 9.2 fl (7.5-11.1) 06/23/18 07:30 Sodium 148 mmol/L (136-145) H 06/23/18 07:30 Potassium 3.6 mmol/L (3.5-5.1) 06/24/18 07:20 Chloride 110 mmol/L (98-107) H 06/23/18 07:30 Carbon Dioxide 30 mmol/L (21-32) 06/23/18 07:30 Anion Gap 8 MMOL/L (8-16) 06/23/18 07:30 BUN 17 mg/dL (7-18) 06/23/18 07:30 Creatinine 1.2 mg/dL (0.55-1.3) 06/23/18 07:30 Creat Clearance w eGFR > 60 (>60) 06/23/18 07:30 Random Glucose 90 mg/dL (74-106) 06/23/18 07:30 Calcium 9.1 mg/dL (8.5-10.1) 06/23/18 07:30 Total Bilirubin 0.3 mg/dL (0.2-1) 06/23/18 07:30 AST 8 U/L (15-37) L 06/23/18 07:30 ALT 23 U/L (13-61) 06/23/18 07:30 Alkaline Phosphatase 52 U/L (45-117) 06/23/18 07:30 Total Protein 6.0 g/dl (6.4-8.2) L 06/23/18 07:30 Albumin 3.4 g/dl (3.4-5.0) 06/23/18 07:30 RPR Titer Nonreactive (NONREACTIVE) 06/23/18 07:30 HIV 1&2 Antibody Screen Negative 06/23/18 07:30 HIV P24 Antigen Negative 06/23/18 07:30 lab noted Assessment: 06/24/18 12:22 withdrawal sx Plan: continue detox
[2018-06-24] MEDS: THIAMINE HCL 100 MG TABLET (FP) PO SCH (22:30)
[2018-06-24] MEDS: chlordiazePOXIDE 5 MG CAPSULE PO SCH (22:32)
[2018-06-24] MEDS: hydrALAZINE HCL 50 MG TABLET (FP) PO SCH (22:33)
[2018-06-24] MEDS: DOXAZOSIN MESYLATE 2 MG TABLET (FP) PO SCH (22:33)
[2018-06-24] MEDS: CARVEDILOL 12.5 MG TABLET (FP) PO SCH (22:33)
[2018-06-24] MEDS: ROSUVASTATIN CA 20 MG TABLET (FP) PO SCH (22:33)
[2018-06-24] MEDS: hydrOXYzine PAMOATE 50 MG CAPSULE (FP) PO PRN (22:37)
[2018-06-25] MEDS: CARVEDILOL 12.5 MG TABLET (FP) PO SCH ×3 (06:01→23:23)
[2018-06-25] MEDS: hydrALAZINE HCL 50 MG TABLET (FP) PO SCH ×3 (06:01→23:05)
[2018-06-25] MEDS: chlordiazePOXIDE 5 MG CAPSULE PO SCH ×3 (06:02→19:54)
[2018-06-25] MEDS: POTASSIUM CHLORIDE TABS 20 MEQ TABLET.ER (FP) PO SCH ×2 (11:14→22:55)
[2018-06-25] MEDS: ASPIRIN 81 MG CHEWABLE TABLETS PO SCH (11:14)
[2018-06-25] MEDS: amLODIPine BESYLATE 10 MG TABLET (FP) PO SCH (11:14)
[2018-06-25] MEDS: PRENATAL VITAMINS W/ FOLIC ACID TABLET (FP) PO SCH (11:14)
--- NOTE | 2018-06-25 12:54 | PN ---
[facility] Progress Note Note: PATIENT CONTINUES WITH DETOX REGIMEN. STATES " I FEEL BETTER, JUST A LITTLE ANXIOUS. Laboratory Tests 06/23/18 06/23/18 06/23/18 07:30 07:30 07:30 WBC 4.8 RBC 4.65 Hgb 13.8 Hct 41.5 MCV 89.2 MCH 29.7 MCHC 33.3 RDW 13.2 Plt Count 199 MPV 9.2 Sodium 148 H Potassium 3.2 L Chloride 110 H Carbon Dioxide 30 Anion Gap 8 BUN 17 Creatinine 1.2 Creat Clearance w eGFR > 60 Random Glucose 90 Calcium 9.1 Total Bilirubin 0.3 AST 8 L ALT 23 Alkaline Phosphatase 52 Total Protein 6.0 L Albumin 3.4 RPR Titer Nonreactive HIV 1&2 Antibody Screen HIV P24 Antigen 06/23/18 06/24/18 07:30 07:20 WBC RBC Hgb Hct MCV MCH MCHC RDW Plt Count MPV Sodium Potassium 3.6 Chloride Carbon Dioxide Anion Gap BUN Creatinine Creat Clearance w eGFR Random Glucose Calcium Total Bilirubin AST ALT Alkaline Phosphatase Total Protein Albumin RPR Titer HIV 1&2 Antibody Screen Negative HIV P24 Antigen Negative Vital Signs Temperature 97.7 F 06/25/18 09:35 Pulse Rate 82 06/25/18 09:35 Respiratory Rate 18 06/25/18 09:35 Blood Pressure 132/94 06/25/18 09:35 O2 Sat by Pulse Oximetry (%) SKIN WARM AND DRY ALERT AND ORIENTED X 3 AMB AD SHANIQUA EXT FULL ROM A/P WITHDRAWAL SX CONTINUE ORAL FLUIDS CONTINUE DETOX ORDERED CONTINUE TO MONITOR
[2018-06-25] MEDS: THIAMINE HCL 100 MG TABLET (FP) PO SCH (22:54)
[2018-06-25] MEDS: DOXAZOSIN MESYLATE 2 MG TABLET (FP) PO SCH (22:55)
[2018-06-25] MEDS: ROSUVASTATIN CA 20 MG TABLET (FP) PO SCH (22:55)
[2018-06-25] MEDS: chlordiazePOXIDE HCL 10 MG CAPSULE PO SCH (22:55)
[2018-06-26] MEDS: CARVEDILOL 12.5 MG TABLET (FP) PO SCH (06:29)
[2018-06-26] MEDS: chlordiazePOXIDE HCL 10 MG CAPSULE PO SCH (06:29)
[2018-06-26] MEDS: hydrALAZINE HCL 50 MG TABLET (FP) PO SCH ×2 (06:30→07:29)
--- NOTE | 2018-06-26 08:48 | PN ---
[facility] Progress Note (SOAP) Subjective: feel better Objective: 06/26/18 08:47 Vital Signs Temperature 96.4 F L 06/26/18 07:33 Pulse Rate 71 06/26/18 07:33 Respiratory Rate 20 06/26/18 07:33 Blood Pressure 139/92 06/26/18 07:33 O2 Sat by Pulse Oximetry (%) Laboratory Tests 06/23/18 06/23/18 06/23/18 07:30 07:30 07:30 WBC 4.8 RBC 4.65 Hgb 13.8 Hct 41.5 MCV 89.2 MCH 29.7 MCHC 33.3 RDW 13.2 Plt Count 199 MPV 9.2 Sodium 148 H Potassium 3.2 L Chloride 110 H Carbon Dioxide 30 Anion Gap 8 BUN 17 Creatinine 1.2 Creat Clearance w eGFR > 60 Random Glucose 90 Calcium 9.1 Total Bilirubin 0.3 AST 8 L ALT 23 Alkaline Phosphatase 52 Total Protein 6.0 L Albumin 3.4 RPR Titer Nonreactive HIV 1&2 Antibody Screen HIV P24 Antigen 06/23/18 06/24/18 07:30 07:20 WBC RBC Hgb Hct MCV MCH MCHC RDW Plt Count MPV Sodium Potassium 3.6 Chloride Carbon Dioxide Anion Gap BUN Creatinine Creat Clearance w eGFR Random Glucose Calcium Total Bilirubin AST ALT Alkaline Phosphatase Total Protein Albumin RPR Titer HIV 1&2 Antibody Screen Negative HIV P24 Antigen Negative pt aox3 in nad ambulating Assessment: 06/26/18 08:47 detox completed Plan: d/c today
--- NOTE | 2018-06-26 08:50 | DS ---
[facility] Detox Discharge Summary Admission Date: 06/22/18 Discharge Date: 06/26/18 - History Present History: Alcohol Dependence, Cannabis Dependence, Cocaine Dependence - Physical Exam Results Vital Signs: Vital Signs Temperature 96.4 F L 06/26/18 07:33 Pulse Rate 71 06/26/18 07:33 Respiratory Rate 20 06/26/18 07:33 Blood Pressure 139/92 06/26/18 07:33 O2 Sat by Pulse Oximetry (%) - Treatment Hospital Course: Detox Protocol Followed, Detoxed Safely, Responded well, Discharged Condition Good - Medication Discharge Medications: Ambulatory Orders Amlodipine Besylate [Norvasc -] 10 mg PO DAILY 11/11/17 hydrOXYzine PAMOATE [Vistaril -] 50 mg PO TID #90 capsule 06/23/18 Aspirin [ASA -] 81 mg PO DAILY #30 tab.chew 06/25/18 Carvedilol [Coreg -] 37.5 mg PO BID@0600,2200 #30 tablet 06/25/18 Doxazosin Mesylate [Cardura -] 2 mg PO HS #30 tablet 06/25/18 Rosuvastatin Calcium [Crestor] 20 mg PO HS 14 Days #14 tablet 06/25/18 hydrALAZINE HCL [Apresoline -] 50 mg PO TID #30 tablet 06/25/18 - Diagnosis (1) Cannabis dependence Current Visit: Yes Status: Chronic (2) MDD (major depressive disorder), recurrent episode, moderate Current Visit: Yes Status: Chronic (3) Alcohol dependence, uncomplicated Current Visit: Yes Status: Chronic (4) Cocaine dependence Current Visit: Yes Status: Chronic Qualifiers: Substance use status: uncomplicated Qualified Code(s): F14.20 - Cocaine dependence, uncomplicated (5) Hypercholesterolemia Current Visit: Yes Status: Chronic (6) Hyperparathyroidism Current Visit: Yes Status: Chronic (7) Hypokalemia Current Visit: Yes Status: Acute (8) Essential (primary) hypertension Current Visit: Yes Status: Chronic - AMA Did Patient Leave Against Medical Advice: No
[2018-06-26 09:31] VITALS: BP 141/83; PULSE 79; TEMP 97.7
--- NOTE | 2018-06-26 09:38 | PN ---
Psychiatric Progress Note Vital Signs: Vital Signs Period Temp Pulse Resp BP Sys/Khanna Pulse Ox Last 24 Hr 96.4 F-98.1 F 71-87 18-20 132-156/83-101 Date of Session: 06/26/18 Chief Complaint:: My medications HPI: Patient asking Vistaril order upon discharge to be send to his pharmacy, for anxiety prevention. Current Medications: Active Medications Generic Name Dose Route Start Last Admin Trade Name Freq PRN Reason Stop Dose Admin Acetaminophen 650 mg 06/22/18 21:12 Tylenol - PO Q4H PRN FEVER Al Hydroxide/Mg Hydroxide 30 ml 06/22/18 21:12 Mylanta Oral Suspension - PO Q6H PRN DYSPEPSIA Amlodipine Besylate 10 mg 06/23/18 10:00 06/25/18 11:14 Norvasc - PO 10 mg DAILY SHARRI Administration Aspirin 81 mg 06/23/18 10:00 06/25/18 11:14 Asa - PO 81 mg DAILY SHARRI Administration Carvedilol 37.5 mg 06/22/18 22:00 06/26/18 06:29 Coreg - PO 37.5 mg BID@0600,2200 SHARRI Administration Chlordiazepoxide HCl 10 mg 06/25/18 23:00 06/26/18 06:29 Librium - PO 06/26/18 17:01 10 mg [id number] SHARRI Administration Doxazosin Mesylate 2 mg 06/22/18 22:00 06/25/18 22:55 Cardura - PO 2 mg HS SHARRI Administration Eucalyptus/Menthol/Phenol/Sorbitol 1 each 06/22/18 21:12 Cepastat Lozenge - MM Q4H PRN SORE THROAT Guaifenesin 10 ml 06/22/18 21:12 Robitussin Dm - PO Q6H PRN COUGH Hydralazine HCl 50 mg 06/22/18 22:00 06/26/18 07:29 Apresoline - PO 50 mg TID SHARRI Administration Hydroxyzine Pamoate 50 mg 06/22/18 21:12 06/24/18 22:37 Vistaril - PO 50 mg Q4H PRN Administration AGITATION Ibuprofen 400 mg 06/22/18 21:12 Motrin - PO Q6H PRN PAIN LEVEL 4-6 Loperamide HCl 4 mg 06/22/18 21:12 Imodium - PO Q6H PRN DIARRHEA Magnesium Citrate 300 ml 06/22/18 21:12 Citroma - PO Q48H PRN CONSTIPATION Magnesium Hydroxide 30 ml 06/22/18 21:12 Milk Of Magnesia - PO DAILY PRN CONSTIPATION Melatonin 5 mg 06/22/18 22:00 Melatonin PO HS PRN INSOMNIA Potassium Chloride 20 meq 06/23/18 12:00 06/25/18 22:55 K-Dur - PO 20 meq BID SHARRI Administration Multivit/Folic Acid/Iron 1 tab 06/23/18 10:00 06/25/18 11:14 Vitamins (Sjr) - PO 1 tab DAILY SHARRI Administration Pseudoephedrine/Triprolidine 1 combo 06/22/18 21:12 Actifed - PO TID PRN NASAL CONGESTION Rosuvastatin Calcium 20 mg 06/22/18 22:00 06/25/18 22:55 Crestor - PO 20 mg HS SHARRI Administration Thiamine HCl 100 mg 06/22/18 22:00 06/25/18 22:54 Vitamin B1 - PO 100 mg HS SHARRI Administration Medication(s) Change(s): none Mental Status Exam - Mental Status Exam Alert and Oriented to: Person Cognitive Function: Fair Patient Appearance: Unkempt Mood: Anxious Affect: Mood Congruent Patient Behavior: Talkative Speech Pattern: Appropriate Voice Loudness: Normal Thought Process: Goal Oriented Thought Disorder: Being Controlled Hallucinations: Denies Suicidal Ideation: Denies Homicidal Ideation: Denies Insight/Judgement: Fair Sleep: Difficulty falling asleep Appetite: Fair Muscle strength/Tone: Normal Gait/Station: Normal Additional Comments: Vistaril 50mg po prn q4 for anxiety Psychiatric Treatment Plan - Problem List (1) Syncope Current Visit: Yes (2) Alcohol dependence, uncomplicated Current Visit: Yes (3) Cannabis dependence Current Visit: Yes (4) Cocaine dependence Current Visit: Yes Qualifiers: Substance use status: uncomplicated Qualified Code(s): F14.20 - Cocaine dependence, uncomplicated (5) Essential (primary) hypertension Current Visit: Yes (6) Hypercholesterolemia Current Visit: Yes (7) Hyperparathyroidism Current Visit: Yes (8) MDD (major depressive disorder), recurrent episode, moderate Current Visit: Yes (9) Old cerebrovascular accident without late effect Current Visit: Yes (10) Post traumatic stress disorder (PTSD) Current Visit: No Initial treatment plan: Vistaril 50mg po prn q4 for anxiety
== END 2018-06-26 09:55 | disposition home or self-care (01) | DRG 774 ==
LOC: YASAS 19:12 → Y6N 21:20
PROC: HZ2ZZZZ Detoxification Services for Substance Abuse Treatment (ICD-10-PCS; principal; 2018-06-22)
DX: F10.230 Alcohol dependence with withdrawal, uncomplicated (principal); F14.20 Cocaine dependence, uncomplicated; F12.20 Cannabis dependence, uncomplicated; F33.1 Major depressive disorder, recurrent, moderate; F43.10 Post-traumatic stress disorder, unspecified; I10 Essential (primary) hypertension; E78.5 Hyperlipidemia, unspecified; E21.3 Hyperparathyroidism, unspecified; E87.6 Hypokalemia; R76.11 Nonspecific reaction to tuberculin skin test without active tuberculosis; E66.9 Obesity, unspecified; Z68.32 Body mass index [BMI] 32.0-32.9, adult; Z86.73 Personal history of transient ischemic attack (TIA), and cerebral infarction without residual deficits
CPT/HCPCS: 36415; 80053; 84132; 85027; 86593; 87389; 93005; 93010

== ENCOUNTER 2018-08-24 09:41 | Inpatient (IN) | payer OTHER ==
[2018-08-24 09:58] VITALS: BMI 33.0
--- NOTE | 2018-08-24 10:26 | HP ---
CIWA Score Nausea/Vomitin Muscle Tremors: 4-Moderate,w/Arms Extend Anxiety: 4-Mod. Anxious/Guarded Agitation: 1-Slight > Activity Paroxysmal Sweats: 3 Orientation: 1-Uncertain about Date Tacttile Disturbances: 0-None Auditory Disturbances: 0-None Visual Disturbances: 0-None Headache: 2-Mild CIWA-Ar Total Score: 18 - Admission Criteria OASAS Guidelines: Admission for Medically Managed Detox: Requires at least one of the followin. CIWA greater than 12 2. Seizures within the past 24 hours 3. Delirium tremens within the past 24 hours 4. Hallucinations within the past 24 hours 5. Acute intervention needed for co occurring medical disorder 6. Acute intervention needed for co occurring psychiatric disorder 7. Severe withdrawal that cannot be handled at a lower level of care (continued vomiting, continued diarrhea, abnormal vital signs) requiring intravenous medication and/or fluids 8. Patient presents the following: CIWA greater than 12 Admission Criteria Met: Admission criteria met Admission ROS [facility] - HPI Chief Complaint: I gotta stop doing what I'm doing, I'm wrecking my life Allergies/Adverse Reactions: Allergies Allergy/AdvReac Type Severity Reaction Status Date / Time No Known Allergies Allergy Verified 08/24/18 10:25 History of Present Illness: 52 yo gentleman here for detox from alcohol. History of black outs, no seizures. This is one of multiple attempts Exam Limitations: Clinical Condition - Ebola screening Have you been sick,other than usual withdrawal symptoms: No - Review of Systems Constitutional: Loss of Appetite, Malaise, Night Sweats, Changes in sleep EENT: reports: Blurred Vision, Nose Congestion Respiratory: reports: No Symptoms reported Cardiac: reports: No Symptoms Reported GI: reports: Nausea, Poor Appetite, Indigestion, Abdominal cramping : reports: No Symptoms Reported Musculoskeletal: reports: No Symptoms Reported Integumentary: reports: Dryness Neuro: reports: Headache, Tremors Endocrine: reports: No Symptoms Reported Hematology: reports: No Symptoms Reported Psychiatric: reports: Judgement Intact, Mood/Affect Appropiate, Orientated x3, Anxious Other Systems: Reviewed and Negative Patient History - Patient Medical History Hx Anemia: No Hx Asthma: No Hx Chronic Obstructive Pulmonary Disease (COPD): No Hx Cancer: No Hx Cardiac Disorders: No Hx Hypertension: Yes (Norvasc, coreg, hydralazine, ASA) Hx Hypercholesterolemia: Yes Hx Pacemaker: No HX Cerebrovascular Accident: Yes (2012 diminish vision left) Hx Seizures: No Hx Dementia: No Hx Diabetes: No Hx Gastrointestinal Disorders: No Hx Liver Disease: No Hx Genitourinary Disorders: No Hx Sexually Transmitted Disorders: No Hx Renal Disease (ESRD): No Hx Thyroid Disease: Yes (hyperparathyroidism has appointment in 08/20) Hx Human Immunodeficiency Virus (HIV): No (last 11/18) Hx Hepatitis C: No Hx Depression: Yes (Not on meds, hospitalized several months ago) Hx Suicide Attempt: No (denies curent SI) Hx Bipolar Disorder: No Hx Schizophrenia: No - Patient Surgical History Past Surgical History: No Hx Neurologic Surgery: No Hx Cataract Extraction: No Hx Cardiac Surgery: No Hx Lung Surgery: No Hx Breast Surgery: No Hx Breast Biopsy: No Hx Abdominal Surgery: No Hx Appendectomy: No Hx Cholecystectomy: No Hx Genitourinary Surgery: No Hx Section: No Hx Orthopedic Surgery: No Anesthesia Reaction: No - PPD History Previous Implant?: Yes Documented Results: Positive w/o proof (states took INH 1994) Implanted On Prior [facility] Admission?: No Date: 11/12/17 (cxr done ) PPD to be Administered?: No - Reproductive History Patient is a Female of Child Bearing Age (11 -55 yrs old): No (male) - Smoking Cessation Smoking history: Former smoker Have you smoked in the past 12 months: No If you are a former smoker, when did you quit?: 1979 Hx Chewing Tobacco Use: No Initiated information on smoking cessation: No - Substance & Tx. History Hx Alcohol Use: Yes Hx Substance Use: Yes Substance Use Type: Alcohol, Cocaine Hx Substance Use Treatment: Yes (detox, rehab) - Substances Abused Alcohol Route: Oral Frequency: Daily Amount used: 1 LITER BEER AND 1/5 LIQUOR Age of first use: 23 Date of Last Use: 08/24/18 Cocaine Route: Smoking Frequency: Daily Amount used: 8 GRAMS Age of first use: 33 Date of Last Use: 08/24/18 Family Disease History - Family Disease History Family Disease History: Heart Disease: Sister (one living, one - dialysis), Other: Father (living, healthy), Mother (living, thryoid problems), Brother (two - living - healthy), Sister, Son (three - healthy), Daughter (four - healthy) Admission Physical Exam [facility] - Vital Signs Vital Signs: Vital Signs - 24 hr 08/24/18 09:56 Temperature 99.3 F Pulse Rate 108 H Respiratory 18 Rate Blood Pressure 157/98 - Physical General Appearance: Yes: Nourished, Appropriately Dressed, Moderate Distress, Obese, Tremorous, Irritable, Anxious HEENTM: Yes: EOMI, Hearing grossly Normal, Normocephalic, Normal Voice, Pharynx Normal, Other (braces) Respiratory: Yes: Normal Breath Sounds, No Respiratory Distress Neck: Yes: No masses,lesions,Nodules, Supple Breast: Yes: Breast Exam Deferred Cardiology: Yes: Regular Rhythm, Tachycardia Abdominal: Yes: Flat, Soft Genitourinary: Yes: Frequency Back: Yes: Normal Inspection Musculoskeletal: Yes: full range of Motion, Gait Steady Extremities: Yes: Normal Inspection, Normal Range of Motion, Non-Tender Neurological: Yes: Alert, Motor Strength 5/5, Normal Mood/Affect, Normal Response Integumentary: Yes: Normal Color, Warm Lymphatic: Yes: Within Normal Limits - Diagnostic (1) Alcohol dependence, uncomplicated Current Visit: Yes Status: Chronic (2) Cocaine dependence Current Visit: Yes Status: Chronic Qualifiers: Substance use status: uncomplicated Qualified Code(s): F14.20 - Cocaine dependence, uncomplicated (3) Essential (primary) hypertension Current Visit: Yes Status: Chronic (4) Old cerebrovascular accident without late effect Current Visit: Yes Status: Suspected (5) PPD positive, treated Current Visit: Yes Status: Suspected Comment: states treated with INH, cxr normal Cleared for Admission [facility] - Detox or Rehab [facility] Level of Care: Medically Managed Detox Regimen/Protocol: Librium [facility] Breath Alcohol Content Breath Alcohol Content: 0.065 Urine Drug Screen - Results Drug Screen Negative: No Urine Drug Screen Results: MAURICE-Cocaine
[2018-08-24] MEDS ORDERED: P-EPHED 60MG/TRIPROLIDI 2.5MG TABLET PO PRN (10:49)
[2018-08-24] MEDS ORDERED: hydrOXYzine PAMOATE 25 MG CAPSULE (FP) PO PRN (10:49)
[2018-08-24] MEDS ORDERED: MAGNESIUM CITRATE 300 ML BOTTLE PO PRN (10:49)
[2018-08-24] MEDS ORDERED: MENTHOL/PHENOL 1 EACH UD MM PRN (10:49)
[2018-08-24] MEDS ORDERED: guaiFENesin/D-METHORPHAN HB 10 ML UNIT-DOSE CUPS PO PRN (10:49)
[2018-08-24] MEDS ORDERED: MAGNESIUM HYDROX 2400MG/30ML ORAL SUSPENSION 30 ML CUP PO PRN (10:49)
[2018-08-24] MEDS ORDERED: chlordiazePOXIDE HCL 25 MG CAPSULE PO PRN (10:49)
[2018-08-24] MEDS ORDERED: MAG HYDROX/AL HYDROX/SIMETH 30 ML UNIT-DOSE CUP PO PRN (10:49)
[2018-08-24] MEDS ORDERED: LOPERAMIDE HCL 2 MG CAPSULE PO PRN (10:49)
[2018-08-24] MEDS ORDERED: ACETAMINOPHEN 325 MG TABLET (FP) PO PRN (10:49)
[2018-08-24] MEDS ORDERED: ONDANSETRON *ODT* 4 MG TABLET SL PRN (10:50)
[2018-08-24] MEDS: amLODIPine BESYLATE 10 MG TABLET (FP) PO SCH (12:16)
[2018-08-24] MEDS: hydrALAZINE HCL 50 MG TABLET (FP) PO SCH ×2 (15:19→22:13)
[2018-08-24] MEDS: chlordiazePOXIDE HCL 25 MG CAPSULE PO SCH ×2 (19:27→22:13)
[2018-08-24] MEDS ORDERED: MELATONIN 5 MG TABLETS PO PRN (22:00)
[2018-08-24] MEDS: THIAMINE HCL 100 MG TABLET (FP) PO SCH (22:12)
[2018-08-24] MEDS: CARVEDILOL 12.5 MG TABLET (FP) PO SCH (22:13)
[2018-08-24] MEDS: ROSUVASTATIN CA 20 MG TABLET (FP) PO SCH (22:13)
[2018-08-24] MEDS: DOXAZOSIN MESYLATE 2 MG TABLET (FP) PO SCH (22:48)
[2018-08-25] MEDS: CARVEDILOL 12.5 MG TABLET (FP) PO SCH ×2 (05:32→22:52)
[2018-08-25] MEDS: hydrALAZINE HCL 50 MG TABLET (FP) PO SCH ×3 (05:32→22:30)
[2018-08-25] MEDS: chlordiazePOXIDE HCL 25 MG CAPSULE PO SCH ×4 (05:33→22:30)
[2018-08-25] MEDS: amLODIPine BESYLATE 10 MG TABLET (FP) PO SCH (10:19)
[2018-08-25] MEDS: PRENATAL VITAMINS W/ FOLIC ACID TABLET (FP) PO SCH (10:19)
[2018-08-25] MEDS: ASPIRIN 81 MG CHEWABLE TABLETS PO SCH (10:19)
[2018-08-25 10:35] LABS: ALBUMIN 3.6 g/dl (3.4-5.0); ALK PHOS 47 U/L (45-117); ANION GAP 5 MMOL/L (8-16); BILIRUBIN,TOTAL 0.3 mg/dL (0.2-1); BLOOD UREA NITROGEN 31 mg/dL (7-18); CALCIUM 9.4 mg/dL (8.5-10.1); CHLORIDE 105 mmol/L (98-107); CO2 30 mmol/L (21-32); GLUCOSE,RANDOM 95 mg/dL (74-106); POTASSIUM 3.1 mmol/L (3.5-5.1); SGOT/AST 16 U/L (15-37); SGPT/ALT 29 U/L (13-61); SODIUM 140 mmol/L (136-145)
[2018-08-25 10:57] LABS: HEMATOCRIT 41.8 % (35.4-49); HEMOGLOBIN 13.9 GM/dL (11.7-16.9); MCH 29.8 pg (25.7-33.7); MCHC 33.3 g/dl (32.0-35.9); MEAN CELL VOLUME 89.6 fl (80-96); MEAN PLT VOLUME 9.3 fl (7.5-11.1); PLATELET COUNT 198 K/MM3 (134-434); RBC 4.67 M/mm3 (4.00-5.60); RDW 13.8 % (11.9-15.9); WHITE BLOOD COUNT 5.9 K/mm3 (4.0-10.0)
--- NOTE | 2018-08-25 11:43 | PN ---
[facility] CIWA - CIWA Score Nausea/Vomitin-Mild Nausea/No Vomiting Muscle Tremors: 3 Anxiety: 3 Agitation: 3 Paroxysmal Sweats: 1-Minimal Palms Moist Orientation: 1-Uncertain about Date Tacttile Disturbances: 0-None Auditory Disturbances: 0-None Visual Disturbances: 0-None Headache: 2-Mild CIWA-Ar Total Score: 14 S Progress Note (SOAP) Subjective: tremor sweat trouble sleep at night anxiety restlessness gi distress Objective: 08/25/18 11:40 Vital Signs Temperature 97.7 F 08/25/18 09:32 Pulse Rate 74 08/25/18 09:32 Respiratory Rate 18 08/25/18 09:32 Blood Pressure 112/65 08/25/18 09:32 O2 Sat by Pulse Oximetry (%) Laboratory Last Values WBC 5.9 K/mm3 (4.0-10.0) 08/25/18 07:30 RBC 4.67 M/mm3 (4.00-5.60) 08/25/18 07:30 Hgb 13.9 GM/dL (11.7-16.9) 08/25/18 07:30 Hct 41.8 % (35.4-49) 08/25/18 07:30 MCV 89.6 fl (80-96) 08/25/18 07:30 MCH 29.8 pg (25.7-33.7) 08/25/18 07:30 MCHC 33.3 g/dl (32.0-35.9) 08/25/18 07:30 RDW 13.8 % (11.9-15.9) 08/25/18 07:30 Plt Count 198 K/MM3 (134-434) 08/25/18 07:30 MPV 9.3 fl (7.5-11.1) 08/25/18 07:30 Sodium 140 mmol/L (136-145) 08/25/18 07:30 Potassium 3.1 mmol/L (3.5-5.1) L 08/25/18 07:30 Chloride 105 mmol/L (98-107) 08/25/18 07:30 Carbon Dioxide 30 mmol/L (21-32) 08/25/18 07:30 Anion Gap 5 MMOL/L (8-16) L 08/25/18 07:30 BUN 31 mg/dL (7-18) H 08/25/18 07:30 Creatinine 2.0 mg/dL (0.55-1.3) H 08/25/18 07:30 Creat Clearance w eGFR 35.54 (>60) 08/25/18 07:30 Random Glucose 95 mg/dL (74-106) 08/25/18 07:30 Calcium 9.4 mg/dL (8.5-10.1) 08/25/18 07:30 Total Bilirubin 0.3 mg/dL (0.2-1) 08/25/18 07:30 AST 16 U/L (15-37) 08/25/18 07:30 ALT 29 U/L (13-61) 08/25/18 07:30 Alkaline Phosphatase 47 U/L (45-117) 08/25/18 07:30 Total Protein 6.0 g/dl (6.4-8.2) L 08/25/18 07:30 Albumin 3.6 g/dl (3.4-5.0) 08/25/18 07:30 lab noted low potassium Assessment: 08/25/18 11:42 alcohol withdrawal sx hypokalcemia Plan: continue detox potassium supplement
[2018-08-25] MEDS: POTASSIUM CHLORIDE TABS 20 MEQ TABLET.ER (FP) PO SCH ×2 (12:50→22:30)
[2018-08-25] MEDS: ROSUVASTATIN CA 20 MG TABLET (FP) PO SCH (22:31)
[2018-08-25] MEDS: THIAMINE HCL 100 MG TABLET (FP) PO SCH (22:35)
[2018-08-25] MEDS: DOXAZOSIN MESYLATE 2 MG TABLET (FP) PO SCH (22:44)
[2018-08-26] MEDS ORDERED: CARVEDILOL 12.5 MG TABLET (FP) PO SCH (07:00)
[2018-08-26] MEDS: chlordiazePOXIDE HCL 25 MG CAPSULE PO SCH ×2 (07:10→10:18)
[2018-08-26] MEDS: hydrALAZINE HCL 50 MG TABLET (FP) PO SCH ×2 (07:11→14:15)
[2018-08-26] MEDS: CARVEDILOL 12.5 MG TABLET (FP) PO SCH (07:21)
[2018-08-26] MEDS: PRENATAL VITAMINS W/ FOLIC ACID TABLET (FP) PO SCH (10:17)
[2018-08-26] MEDS: amLODIPine BESYLATE 10 MG TABLET (FP) PO SCH (10:18)
[2018-08-26] MEDS: ASPIRIN 81 MG CHEWABLE TABLETS PO SCH (10:18)
[2018-08-26] MEDS: POTASSIUM CHLORIDE TABS 20 MEQ TABLET.ER (FP) PO SCH (10:18)
--- NOTE | 2018-08-26 11:24 | PN ---
[facility] CIWA - CIWA Score Nausea/Vomitin-No Nausea/No Vomiting Muscle Tremors: 3 Anxiety: 2 Agitation: 2 Paroxysmal Sweats: 2 Orientation: 0-Oriented Tacttile Disturbances: 0-None Auditory Disturbances: 0-None Visual Disturbances: 0-None Headache: 0-None Present CIWA-Ar Total Score: 9 S Progress Note (SOAP) Subjective: feeling better sweats agitation Objective: 08/26/18 11:24 Vital Signs Temperature 98.1 F 08/26/18 09:09 Pulse Rate 75 08/26/18 09:09 Respiratory Rate 18 08/26/18 09:09 Blood Pressure 123/71 08/26/18 09:09 O2 Sat by Pulse Oximetry (%) Laboratory Tests 08/25/18 08/25/18 08/25/18 07:30 07:30 07:30 WBC 5.9 RBC 4.67 Hgb 13.9 Hct 41.8 MCV 89.6 MCH 29.8 MCHC 33.3 RDW 13.8 Plt Count 198 MPV 9.3 Sodium 140 Potassium 3.1 L Chloride 105 Carbon Dioxide 30 Anion Gap 5 L BUN 31 H Creatinine 2.0 H Creat Clearance w eGFR 35.54 Random Glucose 95 Calcium 9.4 Total Bilirubin 0.3 AST 16 ALT 29 Alkaline Phosphatase 47 Total Protein 6.0 L Albumin 3.6 RPR Titer Nonreactive aaox3 ambulating no acute distress labs noted pt has kdur ordered Assessment: 08/26/18 11:25 withdrawal sx Plan: continue detox increase fluids
[2018-08-26 16:47] VITALS: BP 130/78; PULSE 81; TEMP 98.2
[2018-08-26] MEDS ORDERED: chlordiazePOXIDE 5 MG CAPSULE PO SCH (17:00)
--- NOTE | 2018-08-26 17:46 | PN ---
[facility] Progress Note Note: Leaving AMA. wants to be with his family at [place]. Potential for relapse reviewed. Vital Signs 08/26/18 08/26/18 13:12 16:47 Temperature 97.7 F 98.2 F Pulse Rate 84 81 Respiratory 18 18 Rate Blood Pressure 133/73 130/78 Laboratory Last Values WBC 5.9 K/mm3 (4.0-10.0) 08/25/18 07:30 RBC 4.67 M/mm3 (4.00-5.60) 08/25/18 07:30 Hgb 13.9 GM/dL (11.7-16.9) 08/25/18 07:30 Hct 41.8 % (35.4-49) 08/25/18 07:30 MCV 89.6 fl (80-96) 08/25/18 07:30 MCH 29.8 pg (25.7-33.7) 08/25/18 07:30 MCHC 33.3 g/dl (32.0-35.9) 08/25/18 07:30 RDW 13.8 % (11.9-15.9) 08/25/18 07:30 Plt Count 198 K/MM3 (134-434) 08/25/18 07:30 MPV 9.3 fl (7.5-11.1) 08/25/18 07:30 Sodium 140 mmol/L (136-145) 08/25/18 07:30 Potassium 3.1 mmol/L (3.5-5.1) L 08/25/18 07:30 Chloride 105 mmol/L (98-107) 08/25/18 07:30 Carbon Dioxide 30 mmol/L (21-32) 08/25/18 07:30 Anion Gap 5 MMOL/L (8-16) L 08/25/18 07:30 BUN 31 mg/dL (7-18) H 08/25/18 07:30 Creatinine 2.0 mg/dL (0.55-1.3) H 08/25/18 07:30 Creat Clearance w eGFR 35.54 (>60) 08/25/18 07:30 Random Glucose 95 mg/dL (74-106) 08/25/18 07:30 Calcium 9.4 mg/dL (8.5-10.1) 12/23/18 07:30 Total Bilirubin 0.3 mg/dL (0.2-1) 08/25/18 07:30 AST 16 U/L (15-37) 08/25/18 07:30 ALT 29 U/L (13-61) 08/25/18 07:30 Alkaline Phosphatase 47 U/L (45-117) 08/25/18 07:30 Total Protein 6.0 g/dl (6.4-8.2) L 08/25/18 07:30 Albumin 3.6 g/dl (3.4-5.0) 08/25/18 07:30 RPR Titer Nonreactive (NONREACTIVE) 08/25/18 07:30 Labs reviewed. All home medications, except for hydrazaline, sent to patient's pharmacy.
--- NOTE | 2018-08-26 17:47 | DS ---
[facility] Detox Discharge Summary Admission Date: 08/24/18 Discharge Date: 08/26/18 - History Present History: Alcohol Dependence Additional Comments: Patient admitted with c/o alcohol withdrawal. - Physical Exam Results Vital Signs: Vital Signs Temperature 98.2 F 08/26/18 16:47 Pulse Rate 81 08/26/18 16:47 Respiratory Rate 18 08/26/18 16:47 Blood Pressure 130/78 08/26/18 16:47 O2 Sat by Pulse Oximetry (%) Pertinent Admission Physical Exam Findings: Admitted for detox with alcohol withdrawal symptoms. Hx HTN, Laboratory Last Values WBC 5.9 K/mm3 (4.0-10.0) 08/25/18 07:30 RBC 4.67 M/mm3 (4.00-5.60) 08/25/18 07:30 Hgb 13.9 GM/dL (11.7-16.9) 08/25/18 07:30 Hct 41.8 % (35.4-49) 08/25/18 07:30 MCV 89.6 fl (80-96) 08/25/18 07:30 MCH 29.8 pg (25.7-33.7) 08/25/18 07:30 MCHC 33.3 g/dl (32.0-35.9) 08/25/18 07:30 RDW 13.8 % (11.9-15.9) 08/25/18 07:30 Plt Count 198 K/MM3 (134-434) 08/25/18 07:30 MPV 9.3 fl (7.5-11.1) 08/25/18 07:30 Sodium 140 mmol/L (136-145) 08/25/18 07:30 Potassium 3.1 mmol/L (3.5-5.1) L 08/25/18 07:30 Chloride 105 mmol/L (98-107) 08/25/18 07:30 Carbon Dioxide 30 mmol/L (21-32) 08/25/18 07:30 Anion Gap 5 MMOL/L (8-16) L 08/25/18 07:30 BUN 31 mg/dL (7-18) H 08/25/18 07:30 Creatinine 2.0 mg/dL (0.55-1.3) H 08/25/18 07:30 Creat Clearance w eGFR 35.54 (>60) 08/25/18 07:30 Random Glucose 95 mg/dL (74-106) 08/25/18 07:30 Calcium 9.4 mg/dL (8.5-10.1) 08/25/18 07:30 Total Bilirubin 0.3 mg/dL (0.2-1) 08/25/18 07:30 AST 16 U/L (15-37) 08/25/18 07:30 ALT 29 U/L (13-61) 08/25/18 07:30 Alkaline Phosphatase 47 U/L (45-117) 08/25/18 07:30 Total Protein 6.0 g/dl (6.4-8.2) L 08/25/18 07:30 Albumin 3.6 g/dl (3.4-5.0) 08/25/18 07:30 RPR Titer Nonreactive (NONREACTIVE) 08/25/18 07:30 Labs reviewed. - Treatment Hospital Course: Detox Protocol Followed (Did not complete detox.), Discharged Condition Good (Left unit alert and oriented w/ steady gait.) - Medication Discharge Medications: Ambulatory Orders hydrOXYzine PAMOATE [Vistaril -] 50 mg PO TID #90 capsule 06/23/18 Amlodipine Besylate [Norvasc -] 10 mg PO DAILY #14 tablet 08/26/18 Aspirin [ASA -] 81 mg PO DAILY #14 tab.chew 08/26/18 Carvedilol [Coreg -] 37.5 mg PO BID@0600,2200 #30 tablet 08/26/18 Doxazosin Mesylate [Cardura -] 2 mg PO HS #14 tablet 08/26/18 Rosuvastatin Calcium [Crestor] 20 mg PO HS 14 Days #14 tablet 08/26/18 hydrALAZINE HCL [Apresoline -] 50 mg PO TID #30 tablet 08/26/18 - Diagnosis (1) Hypokalemia Status: Chronic (2) Alcohol dependence, uncomplicated Status: Acute (3) Essential (primary) hypertension Status: Chronic (4) Hypercholesterolemia Status: Chronic - AMA Did Patient Leave Against Medical Advice: Yes (Relapse risks reviewed.)
[2018-08-27] MEDS ORDERED: chlordiazePOXIDE HCL 10 MG CAPSULE PO SCH (17:00)
== END 2018-08-26 17:18 | disposition left against medical advice (07) | DRG 770 ==
LOC: YASAS 09:41 → Y6N 10:48
PROC: HZ2ZZZZ Detoxification Services for Substance Abuse Treatment (ICD-10-PCS; principal; 2018-08-24)
DX: F10.230 Alcohol dependence with withdrawal, uncomplicated (principal); F14.20 Cocaine dependence, uncomplicated; I10 Essential (primary) hypertension; E87.6 Hypokalemia; E78.00 Pure hypercholesterolemia, unspecified; E83.51 Hypocalcemia; R76.11 Nonspecific reaction to tuberculin skin test without active tuberculosis; E66.9 Obesity, unspecified; Z68.33 Body mass index [BMI] 33.0-33.9, adult; Z87.891 Personal history of nicotine dependence; Z86.73 Personal history of transient ischemic attack (TIA), and cerebral infarction without residual deficits
CPT/HCPCS: 36415; 80053; 85027; 86593

== ENCOUNTER 2018-11-09 13:57 | Inpatient (IN) | payer OTHER ==
[2018-11-09 15:59] VITALS: BMI 32.9
--- NOTE | 2018-11-09 20:22 | HP ---
CIWA Score Nausea/Vomitin-Mild Nausea/No Vomiting Muscle Tremors: None Anxiety: 4-Mod. Anxious/Guarded Agitation: 1-Slight > Activity Paroxysmal Sweats: 4-Forehead w/Sweat Beads Orientation: 1-Uncertain about Date Tacttile Disturbances: 2-Mild Itch/Numbness/Burn Auditory Disturbances: 0-None Visual Disturbances: 0-None Headache: 0-None Present CIWA-Ar Total Score: 13 - Admission Criteria OASAS Guidelines: Admission for Medically Managed Detox: Requires at least one of the followin. CIWA greater than 12 2. Seizures within the past 24 hours 3. Delirium tremens within the past 24 hours 4. Hallucinations within the past 24 hours 5. Acute intervention needed for co occurring medical disorder 6. Acute intervention needed for co occurring psychiatric disorder 7. Severe withdrawal that cannot be handled at a lower level of care (continued vomiting, continued diarrhea, abnormal vital signs) requiring intravenous medication and/or fluids 8. Patient presents the following: CIWA greater than 12, Acute intervention needed for co-occurring med or psych disorder (hx/o htn worse when withdrawaing, hyperparathyroidism, mdd, ptsd, anxiety attacks) Admission Criteria Met: Admission criteria met Admission ROS [facility] Chief Complaint: c/o worsening withdrawal sx's Allergies/Adverse Reactions: Allergies Allergy/AdvReac Type Severity Reaction Status Date / Time No Known Allergies Allergy Verified 11/09/18 21:35 History of Present Illness: 52 Y.O. MALE WITH HX/O ALCOHOLISM HERE FOR DETOX. CLIENT IS SELF REFERRED HE IS KNOWN TO THIS PROGRAM. LAST ADMIT 08/2018. PRESENTS TODAY WITH C/O WORSENING WITHDRAWAL SX'S. CIWA 13. JAZMÍN 0. UTOX + MAURICE, BZO. cLIENT REPORTS HE IS PRESCRIBED KLONOPINS. HE REPORTS DRINKING APPROX A FIFTH/DAILY OF VODKA. LAST DRANK 1 NIGHT AGO. REPORTS MEDICAL/PSYCH HX/O htn worse when withdrawaing, hyperparathyroidism, mdd, ptsd, anxiety attacks. DENIES HX/O SEIZURE, SI/HI, DRUG OVERDOSE, AVH. LIVES WITH FAMILY, UNEMPLOYED, DENIES Exam Limitations: No Limitations - Ebola screening Have you traveled outside of the country in the last 21 days: No (N) Have you had contact with anyone from an Ebola affected area: No Have you been sick,other than usual withdrawal symptoms: No Do you have a fever: No - Review of Systems Constitutional: Chills, Changes in sleep EENT: reports: Blurred Vision (CHRONIC/ WEARS GLASSES), Dental Problems (BRACES) Respiratory: reports: No Symptoms reported Cardiac: reports: Edema (BLE) GI: reports: Poor Fluid Intake : reports: No Symptoms Reported Musculoskeletal: reports: Back Pain (CHRONIC) Integumentary: reports: Sweating Neuro: reports: No Symptoms reported Endocrine: reports: Other (HYPERPARATHYROIDISM) Hematology: reports: No Symptoms Reported Psychiatric: reports: Orientated x3, Anxious Other Systems: Reviewed and Negative Patient History - Patient Medical History Hx Anemia: No Hx Asthma: No Hx Chronic Obstructive Pulmonary Disease (COPD): No Hx Cancer: No Hx Cardiac Disorders: No Hx Hypertension: Yes (Norvasc, coreg, hydralazine, ASA) Hx Hypercholesterolemia: Yes Hx Pacemaker: No HX Cerebrovascular Accident: Yes (2013 diminish vision left) Hx Seizures: No Hx Dementia: No Hx Diabetes: No Hx Gastrointestinal Disorders: No Hx Liver Disease: No Hx Genitourinary Disorders: No Hx Sexually Transmitted Disorders: No Hx Renal Disease (ESRD): No Hx Thyroid Disease: Yes (hyperparathyroidism ) Hx Human Immunodeficiency Virus (HIV): No Hx Hepatitis C: No Hx Depression: Yes Hx Suicide Attempt: No Hx Bipolar Disorder: No Hx Schizophrenia: No - Patient Surgical History Past Surgical History: No Hx Neurologic Surgery: No Hx Cataract Extraction: No Hx Cardiac Surgery: No Hx Lung Surgery: No Hx Breast Surgery: No Hx Breast Biopsy: No Hx Abdominal Surgery: No Hx Appendectomy: No Hx Cholecystectomy: No Hx Genitourinary Surgery: No Hx Section: No Hx Orthopedic Surgery: No Anesthesia Reaction: No - PPD History Previous Implant?: Yes Documented Results: Negative w/o proof Implanted On Prior [facility] Admission?: No Date: 11/12/17 Results: NEGATIVE CXR PPD to be Administered?: No - Smoking Cessation Smoking history: Former smoker Have you smoked in the past 12 months: No Aproximately how many cigarettes per day: 12 If you are a former smoker, when did you quit?: 1980 Cigars Per Day: 0 Hx Chewing Tobacco Use: No Initiated information on smoking cessation: No - Substance & Tx. History Hx Alcohol Use: Yes Hx Substance Use: Yes Substance Use Type: Alcohol, Cocaine, Marijuana, Prescribed (REPORTS KLONOPIN 1 MG DAILY-RX) Hx Substance Use Treatment: Yes ([facility]) - Substances Abused VODKA Route: Oral Frequency: Daily Amount used: FIFTH Age of first use: 23 Date of Last Use: 11/08/18 COCAINE Route: Smoking Frequency: 3-6 times per week Amount used: 2 GM Age of first use: 33 Date of Last Use: 11/08/18 Family Disease History - Family Disease History Family Disease History: Heart Disease: Sister (one living, one - dialysis), Other: Father (living, healthy), Mother (living, thryoid problems), Brother (two - living - healthy), Sister, Son (three - healthy), Daughter (four - healthy) Admission Physical Exam S - Vital Signs Vital Signs: Vital Signs - 24 hr 11/09/18 15:52 Temperature 97.3 F L Pulse Rate 89 Respiratory 20 Rate Blood Pressure 154/90 - Physical General Appearance: Yes: Appropriately Dressed, Sweating, Anxious HEENTM: Yes: EOMI, Hearing grossly Normal, Normocephalic, Normal Voice, FRANCISCA, Pharynx Normal, Other (DENTAL BRACES) Respiratory: Yes: Chest Non-Tender, Lungs Clear, Normal Breath Sounds, No Respiratory Distress, No Accessory Muscle Use Neck: Yes: No masses,lesions,Nodules, Supple, Trachea in good position Breast: Yes: Breast Exam Deferred Cardiology: Yes: Regular Rhythm, Regular Rate, S1, S2 Abdominal: Yes: Normal Bowel Sounds, Non Tender, Flat, Soft, Protuberent, Other (SCAR) Genitourinary: Yes: Within Normal Limits Back: Yes: Normal Inspection Musculoskeletal: Yes: full range of Motion, Gait Steady Extremities: Yes: Normal Capillary Refill, Normal Inspection, Normal Range of Motion, Non-Tender Neurological: Yes: Fully Oriented, Alert, Motor Strength 5/5, Normal Mood/Affect Integumentary: Yes: Warm, Moist (SWEATBEADS TO FACE), Other Lymphatic: Yes: Within Normal Limits - Diagnostic (1) Cannabis dependence Current Visit: No Status: Chronic (2) Alcohol dependence with uncomplicated withdrawal Current Visit: Yes Status: Acute (3) Drug-induced mood disorder Current Visit: Yes Status: Acute (4) Cocaine dependence Current Visit: Yes Status: Chronic Qualifiers: Substance use status: uncomplicated Qualified Code(s): F14.20 - Cocaine dependence, uncomplicated (5) Hypercholesterolemia Current Visit: Yes Status: Chronic (6) Hyperparathyroidism Current Visit: Yes Status: Chronic (7) PPD positive, treated Current Visit: Yes Status: Suspected Comment: states treated with INH, cxr normal Cleared for Admission [facility] - Detox or Rehab [facility] Level of Care: Medically Managed Detox Regimen/Protocol: Librium Claeared for Rehab Admission: No S Breath Alcohol Content Breath Alcohol Content: 0 Urine Drug Screen - Results Drug Screen Negative: No Urine Drug Screen Results: THC-Marijuana, MAURICE-Cocaine, BZO-Benzodiazepines Inpatient Rehab Admission - Rehab Decision to Admit Inpatient rehab admission?: No
[2018-11-09] MEDS ORDERED: MAGNESIUM HYDROX 2400MG/30ML ORAL SUSPENSION 30 ML CUP PO PRN (20:32)
[2018-11-09] MEDS ORDERED: MENTHOL/PHENOL 1 EACH UD MM PRN (20:32)
[2018-11-09] MEDS ORDERED: BISMUTH SUBSALICYLATE 524 MG/30 ML UD PO PRN (20:32)
[2018-11-09] MEDS ORDERED: ONDANSETRON *ODT* 4 MG TABLET SL PRN (20:32)
[2018-11-09] MEDS ORDERED: IBUPROFEN 400 MG TABLET (FP) PO PRN (20:32)
[2018-11-09] MEDS ORDERED: MAG HYDROX/AL HYDROX/SIMETH 30 ML UNIT-DOSE CUP PO PRN (20:32)
[2018-11-09] MEDS ORDERED: METHOCARBAMOL 500 MG TABLET PO PRN (20:32)
[2018-11-09] MEDS ORDERED: chlordiazePOXIDE HCL 25 MG CAPSULE PO PRN (20:32)
[2018-11-09] MEDS ORDERED: MAGNESIUM CITRATE 300 ML BOTTLE PO PRN (20:32)
[2018-11-09] MEDS ORDERED: hydrOXYzine PAMOATE 25 MG CAPSULE (FP) PO PRN (20:32)
[2018-11-09] MEDS ORDERED: ACETAMINOPHEN 325 MG TABLET (FP) PO PRN ×2 (20:32)
[2018-11-09] MEDS ORDERED: MELATONIN 5 MG TABLETS PO PRN (20:32)
[2018-11-09] MEDS: chlordiazePOXIDE HCL 25 MG CAPSULE PO SCH (22:27)
[2018-11-09] MEDS: CARVEDILOL 12.5 MG TABLET (FP) PO SCH (22:27)
[2018-11-09] MEDS: THIAMINE HCL 100 MG TABLET (FP) PO SCH (22:27)
[2018-11-09] MEDS: ROSUVASTATIN CA 10 MG TABLET (FP) PO SCH (23:26)
[2018-11-09] MEDS: DOXAZOSIN MESYLATE 1 MG TABLET PO SCH (23:26)
[2018-11-09] MEDS: hydrALAZINE HCL 25 MG TABLET (FP) PO SCH (23:26)
[2018-11-10] MEDS: CARVEDILOL 12.5 MG TABLET (FP) PO SCH ×2 (07:06→22:10)
[2018-11-10] MEDS: chlordiazePOXIDE HCL 25 MG CAPSULE PO SCH ×4 (07:06→22:10)
[2018-11-10 11:00] LABS: ALBUMIN 3.4 g/dl (3.4-5.0); ALK PHOS 52 U/L (45-117); ANION GAP 5 MMOL/L (8-16); BILIRUBIN,TOTAL 0.3 mg/dL (0.2-1); BLOOD UREA NITROGEN 27 mg/dL (7-18); CALCIUM 9.7 mg/dL (8.5-10.1); CHLORIDE 107 mmol/L (98-107); CO2 29 mmol/L (21-32); CREATININE 1.5 mg/dL (0.55-1.3); GLUCOSE,RANDOM 107 mg/dL (74-106); POTASSIUM 3.1 mmol/L (3.5-5.1); SGOT/AST 23 U/L (15-37); SGPT/ALT 30 U/L (13-61); SODIUM 141 mmol/L (136-145); TOT PROT 6.2 g/dl (6.4-8.2)
[2018-11-10 11:26] LABS: HEMATOCRIT 40.8 % (35.4-49); HEMOGLOBIN 14.3 GM/dL (11.7-16.9); MCH 31.5 pg (25.7-33.7); MCHC 35.2 g/dl (32.0-35.9); MEAN CELL VOLUME 89.6 fl (80-96); MEAN PLT VOLUME 9.4 fl (7.5-11.1); PLATELET COUNT 179 K/MM3 (134-434); RBC 4.55 M/mm3 (4.00-5.60); WHITE BLOOD COUNT 5.3 K/mm3 (4.0-10.0)
[2018-11-10] MEDS: hydrALAZINE HCL 25 MG TABLET (FP) PO SCH ×2 (11:29→22:10)
[2018-11-10] MEDS: amLODIPine BESYLATE 10 MG TABLET (FP) PO SCH (11:30)
[2018-11-10] MEDS: PRENATAL VITAMINS W/ FOLIC ACID TABLET (FP) PO SCH (11:35)
[2018-11-10] MEDS: ASPIRIN 81 MG CHEWABLE TABLETS PO SCH (11:35)
[2018-11-10] MEDS ORDERED: POTASSIUM CHLORIDE TABS 20 MEQ TABLET.ER (FP) PO ONE ×2 (17:18→22:00)
--- NOTE | 2018-11-10 17:18 | PN ---
S CIWA - CIWA Score Nausea/Vomitin Muscle Tremors: 4-Moderate,w/Arms Extend Anxiety: 4-Mod. Anxious/Guarded Agitation: 4-Moderately Restless Paroxysmal Sweats: 3 Orientation: 0-Oriented Tacttile Disturbances: 0-None Auditory Disturbances: 0-None Visual Disturbances: 0-None Headache: 0-None Present CIWA-Ar Total Score: 17 [facility] Progress Note (SOAP) Subjective: Denies any symptoms. Appears anxious Objective: 11/10/18 17:14 Last Vital Signs Temp Pulse Resp BP Pulse Ox 97.4 F L 63 18 107/52 L 11/10/18 14:15 11/10/18 14:15 11/10/18 14:15 11/10/18 14:15 Laboratory Tests 11/10/18 11/10/18 08:00 08:00 WBC 5.3 RBC 4.55 Hgb 14.3 Hct 40.8 MCV 89.6 MCH 31.5 MCHC 35.2 RDW 13.0 Plt Count 179 MPV 9.4 Sodium 141 Potassium 3.1 L Chloride 107 Carbon Dioxide 29 Anion Gap 5 L BUN 27 H Creatinine 1.5 H Creat Clearance w eGFR 49.54 Random Glucose 107 H Calcium 9.7 Total Bilirubin 0.3 AST 23 ALT 30 Alkaline Phosphatase 52 Total Protein 6.2 L Albumin 3.4 Labs reviewed: K 3.1, bun 27, creat 1.5, GFR 49.54 Assessment: 11/10/18 17:16 Withdrawal symptoms Noted with hypokalemia and SURI Plan: Continue detox Encouraged PO water hydration Hypokalemia: K Dur 40 Meq PO x 2 doses then 10Meq PO daily, repeat K+ level SURI: encouraged PO water hydration, repeat BMP
[2018-11-10] MEDS: DOXAZOSIN MESYLATE 1 MG TABLET PO SCH (22:11)
[2018-11-10] MEDS: THIAMINE HCL 100 MG TABLET (FP) PO SCH (22:11)
[2018-11-10] MEDS: ROSUVASTATIN CA 10 MG TABLET (FP) PO SCH (22:11)
[2018-11-11] MEDS: CARVEDILOL 12.5 MG TABLET (FP) PO SCH ×2 (08:08→22:01)
[2018-11-11] MEDS: chlordiazePOXIDE HCL 25 MG CAPSULE PO SCH ×3 (08:08→17:40)
[2018-11-11] MEDS ORDERED: POTASSIUM CHLORIDE TABS 10 MEQ TABLET.ER (FP) PO SCH (10:00)
[2018-11-11] MEDS: POTASSIUM CHLORIDE TABS 20 MEQ TABLET.ER (FP) PO SCH (10:23)
[2018-11-11] MEDS: amLODIPine BESYLATE 10 MG TABLET (FP) PO SCH (10:24)
[2018-11-11] MEDS: ASPIRIN 81 MG CHEWABLE TABLETS PO SCH (10:24)
[2018-11-11] MEDS: PRENATAL VITAMINS W/ FOLIC ACID TABLET (FP) PO SCH (10:24)
[2018-11-11] MEDS: hydrALAZINE HCL 25 MG TABLET (FP) PO SCH ×2 (10:24→22:02)
[2018-11-11 10:29] LABS: ANION GAP 5 MMOL/L (8-16); BLOOD UREA NITROGEN 16 mg/dL (7-18); CALCIUM 9.3 mg/dL (8.5-10.1); CHLORIDE 111 mmol/L (98-107); CO2 28 mmol/L (21-32); CREATININE 1.2 mg/dL (0.55-1.3); GLUCOSE,RANDOM 102 mg/dL (74-106); POTASSIUM 3.6 mmol/L (3.5-5.1); SODIUM 144 mmol/L (136-145)
--- NOTE | 2018-11-11 11:37 | PN ---
[facility] CIWA - CIWA Score Nausea/Vomitin-No Nausea/No Vomiting Muscle Tremors: 3 Anxiety: 2 Agitation: 3 Paroxysmal Sweats: 2 Orientation: 0-Oriented Tacttile Disturbances: 0-None Auditory Disturbances: 0-None Visual Disturbances: 0-None Headache: 0-None Present CIWA-Ar Total Score: 10 S Progress Note (SOAP) Subjective: irritable sweats agitation interrupted sleep Objective: 11/11/18 11:36 Vital Signs Temperature 96.1 F L 11/11/18 09:38 Pulse Rate 63 11/11/18 09:38 Respiratory Rate 17 11/11/18 09:38 Blood Pressure 160/101 H 11/11/18 09:38 O2 Sat by Pulse Oximetry (%) Laboratory Tests 11/10/18 11/10/18 11/10/18 08:00 08:00 08:00 WBC 5.3 RBC 4.55 Hgb 14.3 Hct 40.8 MCV 89.6 MCH 31.5 MCHC 35.2 RDW 13.0 Plt Count 179 MPV 9.4 Sodium 141 Potassium 3.1 L Chloride 107 Carbon Dioxide 29 Anion Gap 5 L BUN 27 H Creatinine 1.5 H Creat Clearance w eGFR 49.54 Random Glucose 107 H Calcium 9.7 Total Bilirubin 0.3 AST 23 ALT 30 Alkaline Phosphatase 52 Total Protein 6.2 L Albumin 3.4 RPR Titer Nonreactive 11/11/18 08:00 WBC RBC Hgb Hct MCV MCH MCHC RDW Plt Count MPV Sodium 144 Potassium 3.6 Chloride 111 H Carbon Dioxide 28 Anion Gap 5 L BUN 16 Creatinine 1.2 Creat Clearance w eGFR > 60 Random Glucose 102 Calcium 9.3 Total Bilirubin AST ALT Alkaline Phosphatase Total Protein Albumin RPR Titer labs noted aaox3 ambulating no acute distress Assessment: 11/11/18 11:37 withdrawal sx Plan: continue detox increase fluids
[2018-11-11] MEDS: ROSUVASTATIN CA 10 MG TABLET (FP) PO SCH (22:01)
[2018-11-11] MEDS: DOXAZOSIN MESYLATE 1 MG TABLET PO SCH (22:01)
[2018-11-11] MEDS: chlordiazePOXIDE HCL 10 MG CAPSULE PO SCH (22:01)
[2018-11-11] MEDS: THIAMINE HCL 100 MG TABLET (FP) PO SCH (22:02)
[2018-11-11] MEDS ORDERED: chlordiazePOXIDE HCL 10 MG CAPSULE PO PRN (23:00)
[2018-11-12] MEDS: CARVEDILOL 12.5 MG TABLET (FP) PO SCH (06:48)
[2018-11-12] MEDS: chlordiazePOXIDE HCL 10 MG CAPSULE PO SCH (06:50)
--- NOTE | 2018-11-12 09:16 | PN ---
S Progress Note (SOAP) Subjective: alert,irritable,anxious,interrupted sleep, Objective: 11/12/18 09:16 Vital Signs Temperature 97.3 F L 11/12/18 07:17 Pulse Rate 64 11/12/18 07:17 Respiratory Rate 18 11/12/18 07:17 Blood Pressure 151/91 11/12/18 07:17 O2 Sat by Pulse Oximetry (%) Assessment: 11/12/18 09:16 withdrawal symptom Plan: continue detox
--- NOTE | 2018-11-12 09:21 | PN ---
[facility] Progress Note Note: patient did not want to continue treatment,all attempts to convince patient to stay with no avail,seen by counselor, high risk of relapsing explained,advise to go to nearest er if any emergency problem,signed release ambreen
[2018-11-12 09:23] VITALS: BP 142/96; PULSE 85; TEMP 98.7
--- NOTE | 2018-11-12 09:24 | DS ---
[facility] Detox Discharge Summary Admission Date: 11/09/18 Discharge Date: 11/12/18 - History Present History: Alcohol Dependence, Cannabis Dependence, Cocaine Dependence Additional Comments: patient signed release ama Pertinent Past History: hypercholesterolemia hyperparathyroidism positive ppd - Physical Exam Results Vital Signs: Vital Signs Temperature 97.3 F L 11/12/18 07:17 Pulse Rate 64 11/12/18 07:17 Respiratory Rate 18 11/12/18 07:17 Blood Pressure 151/91 11/12/18 07:17 O2 Sat by Pulse Oximetry (%) Pertinent Admission Physical Exam Findings: withdrawal signs and symptom Laboratory Last Values WBC 5.3 K/mm3 (4.0-10.0) 11/10/18 08:00 RBC 4.55 M/mm3 (4.00-5.60) 11/10/18 08:00 Hgb 14.3 GM/dL (11.7-16.9) 11/10/18 08:00 Hct 40.8 % (35.4-49) 11/10/18 08:00 MCV 89.6 fl (80-96) 11/10/18 08:00 MCH 31.5 pg (25.7-33.7) 11/10/18 08:00 MCHC 35.2 g/dl (32.0-35.9) 11/10/18 08:00 RDW 13.0 % (11.9-15.9) 11/10/18 08:00 Plt Count 179 K/MM3 (134-434) 11/10/18 08:00 MPV 9.4 fl (7.5-11.1) 11/10/18 08:00 Sodium 144 mmol/L (136-145) 11/11/18 08:00 Potassium 3.6 mmol/L (3.5-5.1) 11/11/18 08:00 Chloride 111 mmol/L (98-107) H 11/11/18 08:00 Carbon Dioxide 28 mmol/L (21-32) 11/11/18 08:00 Anion Gap 5 MMOL/L (8-16) L 11/11/18 08:00 BUN 16 mg/dL (7-18) 11/11/18 08:00 Creatinine 1.2 mg/dL (0.55-1.3) 11/11/18 08:00 Creat Clearance w eGFR > 60 (>60) 11/11/18 08:00 Random Glucose 102 mg/dL (74-106) 11/11/18 08:00 Calcium 9.3 mg/dL (8.5-10.1) 11/11/18 08:00 Total Bilirubin 0.3 mg/dL (0.2-1) 11/10/18 08:00 AST 23 U/L (15-37) 11/10/18 08:00 ALT 30 U/L (13-61) 11/10/18 08:00 Alkaline Phosphatase 52 U/L (45-117) 11/10/18 08:00 Total Protein 6.2 g/dl (6.4-8.2) L 11/10/18 08:00 Albumin 3.4 g/dl (3.4-5.0) 11/10/18 08:00 RPR Titer Nonreactive (NONREACTIVE) 11/10/18 08:00 - Medication Discharge Medications: Ambulatory Orders Amlodipine Besylate [Norvasc -] 10 mg PO DAILY #14 tablet 08/26/18 Aspirin [ASA -] 81 mg PO DAILY #14 tab.chew 08/26/18 Carvedilol [Coreg -] 37.5 mg PO BID@0600,2200 #30 tablet 08/26/18 Doxazosin Mesylate [Cardura -] 2 mg PO HS #14 tablet 08/26/18 Rosuvastatin Calcium [Crestor] 20 mg PO HS 14 Days #14 tablet 08/26/18 - Diagnosis (1) Alcohol dependence with uncomplicated withdrawal Current Visit: Yes Status: Acute (2) Cocaine dependence Current Visit: Yes Status: Chronic Qualifiers: Substance use status: uncomplicated Qualified Code(s): F14.20 - Cocaine dependence, uncomplicated (3) Hypercholesterolemia Current Visit: Yes Status: Chronic (4) Hyperparathyroidism Current Visit: Yes Status: Chronic (5) PPD positive, treated Current Visit: Yes Status: Suspected (6) Syncope Current Visit: No Status: Acute (7) Essential (primary) hypertension Current Visit: No Status: Chronic - AMA Did Patient Leave Against Medical Advice: Yes
[2018-11-12] MEDS: PRENATAL VITAMINS W/ FOLIC ACID TABLET (FP) PO SCH (10:19)
[2018-11-12] MEDS: ASPIRIN 81 MG CHEWABLE TABLETS PO SCH (10:19)
[2018-11-12] MEDS: POTASSIUM CHLORIDE TABS 20 MEQ TABLET.ER (FP) PO SCH (10:21)
[2018-11-12] MEDS: hydrALAZINE HCL 25 MG TABLET (FP) PO SCH (10:22)
[2018-11-12] MEDS: amLODIPine BESYLATE 10 MG TABLET (FP) PO SCH (10:22)
[2018-11-12] MEDS ORDERED: chlordiazePOXIDE HCL 10 MG CAPSULE PO SCH (23:00)
== END 2018-11-12 11:05 | disposition left against medical advice (07) | DRG 770 ==
LOC: YASAS 13:57 → Y6N 20:42
PROVIDERS: ADMIT Surgery; ATTEND Surgery
PROC: HZ2ZZZZ Detoxification Services for Substance Abuse Treatment (ICD-10-PCS; principal; 2018-11-09)
DX: F10.230 Alcohol dependence with withdrawal, uncomplicated (principal); F14.20 Cocaine dependence, uncomplicated; F12.20 Cannabis dependence, uncomplicated; F19.24 Other psychoactive substance dependence with psychoactive substance-induced mood disorder; F32.9 Major depressive disorder, single episode, unspecified; I10 Essential (primary) hypertension; N17.9 Acute kidney failure, unspecified; E78.00 Pure hypercholesterolemia, unspecified; E21.3 Hyperparathyroidism, unspecified; E87.6 Hypokalemia; R76.11 Nonspecific reaction to tuberculin skin test without active tuberculosis; Z86.79 Personal history of other diseases of the circulatory system
CPT/HCPCS: 36415; 71046-TC-FY; 80048; 80053; 85027; 86593

== ENCOUNTER 2019-04-11 16:28 | Inpatient (IN) | payer OTHER ==
[2019-04-11 19:19] VITALS: BMI 32.5
--- NOTE | 2019-04-11 20:51 | HP ---
CIWA Score Nausea/Vomitin-No Nausea/No Vomiting Muscle Tremors: 3 Anxiety: 2 Agitation: 2 Paroxysmal Sweats: 3 (Increased facial moisture) Orientation: 0-Oriented Tacttile Disturbances: 0-None Auditory Disturbances: 0-None Visual Disturbances: 0-None Headache: 0-None Present CIWA-Ar Total Score: 10 - Admission Criteria OASAS Guidelines: Admission for Medically Managed Detox: Requires at least one of the followin. CIWA greater than 12 2. Seizures within the past 24 hours 3. Delirium tremens within the past 24 hours 4. Hallucinations within the past 24 hours 5. Acute intervention needed for co occurring medical disorder 6. Acute intervention needed for co occurring psychiatric disorder 7. Severe withdrawal that cannot be handled at a lower level of care (continued vomiting, continued diarrhea, abnormal vital signs) requiring intravenous medication and/or fluids 8. Patient presents the following: Acute intervention needed for co-occurring med or psych disorder (Patient is on clonazepam which impedes the presence of withdrawal symptoms.) Admission Criteria Met: Admission criteria met Admission ROS [facility] Chief Complaint: "I'm here for detox from alcohol and cocaine. I am having some withdrawal symptoms" Allergies/Adverse Reactions: Allergies Allergy/AdvReac Type Severity Reaction Status Date / Time No Known Allergies Allergy Verified 04/11/19 19:08 History of Present Illness: 53 yo presents w/ alcohol withdrawal symptoms seeking detox. Alcohol use began at age 23. States currently drinks every day and drinks either beer or hennesey - averages 1 pint. Patient is on prescribed clonazepam and is aware will not be getting while detoxing from alcohol. Patient informed to see his psychiatrist regarding current detox to see if clonazepam needs to be decreased and verbalizes an understanding. [facility] has only been able to stop alcohol and cocaine use while in detox and rehab. Denies h/o seizures, blackouts, overdoses. States cocaine last used 04/10/19. [facility] + for cocaine. PMHx: HTN; Hyperparathyroidism; PPD+ (treated) 11/11/17 EKG abnormal MHHx: PTSD; Anxiety; Panic attacks; Major depression. Denies thoughts of harming self or others. Domiciled. Unemployed. Patient Name: Max Yates Date: 1965 Address: [address] [place] [address] Sex: Male Rx Written Rx Dispensed Drug Quantity Days Supply Prescriber Name 03/25/2019 03/26/2019 acetaminophen-cod #3 tablet 10 5 Cheryl Reyes 03/20/2019 03/24/2019 clonazepam 1 mg tablet 90 30 Hernan Gr 02/28/2019 03/01/2019 clonazepam 1 mg tablet 60 30 Hernan Gr 01/24/2019 01/25/2019 clonazepam 1 mg tablet 60 30 Hernan Gr 12/23/2018 12/26/2018 clonazepam 1 mg tablet 60 30 Cinthia Bryant MD 12/25/2018 12/26/2018 acetaminophen-cod #3 tablet 14 5 Neo El C, MD 10/29/2018 10/30/2018 lorazepam 0.5 mg tablet 14 7 Gee Do MD 10/29/2018 10/30/2018 zaleplon 10 mg capsule 7 7 Gee Do MD Search Terms: Max Yates, 1965 Search Date: 04/11/2019 08:50:42 PM States Searched: [place], [place], [place], [place], [place], [place], [place], [place] The Drug Utilization Report below displays the controlled substance prescriptions, if any, that were dispensed in the indicated state(s). The information displayed on this report is compiled from requests submitted to other states' PMPs, and accurately reflects the information as returned by them. Blank kinney indicate data not provided by other state. This report was requested by: Cristel Finnegan | Reference #: [id number] Exam Limitations: No Limitations - Ebola screening Have you traveled outside of the country in the last 21 days: No (N) Have you had contact with anyone from an Ebola affected area: No Have you been sick,other than usual withdrawal symptoms: No (Denies recent exposure to measles) Do you have a fever: No - Review of Systems Constitutional: Changes in sleep (Difficulty falling asleep - states on a medication) EENT: reports: Blurred Vision Respiratory: reports: No Symptoms reported Cardiac: reports: No Symptoms Reported GI: reports: No Symptoms Reported : reports: No Symptoms Reported Musculoskeletal: reports: Back Pain (Chronic sharp/throbbing LBP. Pain is a "7" . Increases w/ standing for long periods or bending. Improves w/ pain medication.) Integumentary: reports: No Symptoms Reported Neuro: reports: No Symptoms reported Endocrine: reports: Increased Thirst Hematology: reports: No Symptoms Reported Psychiatric: reports: Judgement Intact, Orientated x3, Agitated, Anxious, Depressed (Denies thoughts of harming self or others) Patient History - Patient Medical History Hx Anemia: No Hx Asthma: No Hx Chronic Obstructive Pulmonary Disease (COPD): No Hx Cancer: No Hx Cardiac Disorders: No Hx Hypertension: Yes (Norvasc, coreg, hydralazine, ASA) Hx Hypercholesterolemia: Yes Hx Pacemaker: No HX Cerebrovascular Accident: Yes (2012 diminish vision left) Hx Seizures: No Hx Dementia: No Hx Diabetes: No Hx Gastrointestinal Disorders: No Hx Liver Disease: No Hx Genitourinary Disorders: No Hx Sexually Transmitted Disorders: No Hx Renal Disease (ESRD): No Hx Thyroid Disease: Yes (hyperparathyroidism ) Hx Human Immunodeficiency Virus (HIV): No Hx Hepatitis C: No Hx Depression: Yes Hx Suicide Attempt: No Hx Bipolar Disorder: No Hx Schizophrenia: No - Patient Surgical History Past Surgical History: No Hx Neurologic Surgery: No Hx Cataract Extraction: No Hx Cardiac Surgery: No Hx Lung Surgery: No Hx Breast Surgery: No Hx Breast Biopsy: No Hx Abdominal Surgery: No Hx Appendectomy: No Hx Cholecystectomy: No Hx Genitourinary Surgery: No Hx Section: No Hx Orthopedic Surgery: No Anesthesia Reaction: No - PPD History Previous Implant?: Yes Documented Results: Positive w/proof Implanted On Prior [facility] Admission?: Yes Date: 11/11/18 Results: NEGATIVE CXR PPD to be Administered?: No - Smoking Cessation Smoking history: Former smoker Have you smoked in the past 12 months: No Aproximately how many cigarettes per day: 0 If you are a former smoker, when did you quit?: 1980 Cigars Per Day: 0 Hx Chewing Tobacco Use: No Initiated information on smoking cessation: No - Substance & Tx. History Hx Alcohol Use: Yes Hx Substance Use: Yes Substance Use Type: Alcohol, Cocaine Hx Substance Use Treatment: Yes (detox, rehab) - Substances abused Alcohol Substance route: Oral Frequency: Daily Amount used: 6 cans of beer Age of first use: 23 Date of last use: 04/11/19 Cocaine Substance route: Inhalation Frequency: Daily Amount used: 1 gram Age of first use: 35 Date of last use: 04/11/19 Family Disease History - Family Disease History Family Disease History: Heart Disease: Sister (one living, one - dialysis), Other: Father (living, healthy), Mother (living, thryoid problems), Brother (two - living - healthy), Sister, Son (three - healthy), Daughter (four - healthy) Admission Physical Exam [facility] - Vital Signs Vital Signs: Vital Signs - 24 hr 04/11/19 19:07 Temperature 98.2 F Pulse Rate 88 Respiratory 16 Rate Blood Pressure 132/84 - Physical General Appearance: Yes: Nourished, Mild Distress, Tremorous (Increased facial moisture), Irritable, Sweating (Increased facial moisture), Anxious HEENTM: Yes: EOMI, Hearing grossly Normal, Normocephalic, Normal Voice, FRANCISCA, Pharynx Normal Respiratory: Yes: Lungs Clear, Normal Breath Sounds, No Respiratory Distress Neck: Yes: No masses,lesions,Nodules, Supple Breast: Yes: Breast Exam Deferred Cardiology: Yes: Regular Rhythm, S1, S2 Abdominal: Yes: Non Tender, Soft, Increased Bowel Sounds, Protuberent ( Increased abdominal adiposity) Genitourinary: Yes: Within Normal Limits Back: Yes: Normal Inspection Musculoskeletal: Yes: full range of Motion, Gait Steady Extremities: Yes: Normal Capillary Refill, Tremors (Mild tremors felt) Neurological: Yes: plan rep II-XII NML intact, Fully Oriented, Alert, Motor Strength 5/5 Integumentary: Yes: Normal Color, Warm Lymphatic: Yes: Within Normal Limits - Diagnostic (1) Alcohol dependence with uncomplicated withdrawal Current Visit: Yes Status: Acute (2) Cocaine dependence Current Visit: Yes Status: Chronic Qualifiers: Substance use status: uncomplicated Qualified Code(s): F14.20 - Cocaine dependence, uncomplicated (3) Essential (primary) hypertension Current Visit: Yes Status: Chronic (4) PPD positive, treated Current Visit: No Status: Suspected Comment: States treated with INH. CXR @ [facility] on 11/11/18 normal (5) Insomnia Current Visit: Yes Status: Chronic Qualifiers: Insomnia type: unspecified Qualified Code(s): G47.00 - Insomnia, unspecified (6) History of hyperparathyroidism Current Visit: Yes Status: Chronic Cleared for Admission [facility] - Detox or Rehab [facility] Level of Care: Medically Managed Detox Regimen/Protocol: Librium Claeared for Rehab Admission: No Breathalyzer - Breathalyzer Breathalyzer: 0 Urine Drug Screen - Test Device Lot number: [id number] Expiration date: 12/31/20 - Control Is test valid?: Yes - Results Drug screen NEGATIVE: No Urine drug screen results: MAURICE-Cocaine Inpatient Rehab Admission - Rehab Decision to Admit Inpatient rehab admission?: No
[2019-04-11] MEDS ORDERED: MAG HYDROX/AL HYDROX/SIMETH 30 ML UNIT-DOSE CUP PO PRN (21:57)
[2019-04-11] MEDS ORDERED: MENTHOL/PHENOL 1 EACH UD MM PRN (21:57)
[2019-04-11] MEDS ORDERED: METHOCARBAMOL 500 MG TABLET PO PRN (21:57)
[2019-04-11] MEDS ORDERED: MAGNESIUM CITRATE 300 ML BOTTLE PO PRN (21:57)
[2019-04-11] MEDS ORDERED: chlordiazePOXIDE HCL 25 MG CAPSULE PO PRN (21:57)
[2019-04-11] MEDS ORDERED: MAGNESIUM HYDROX 2400MG/30ML ORAL SUSPENSION 30 ML CUP PO PRN (21:57)
[2019-04-11] MEDS ORDERED: ACETAMINOPHEN 325 MG TABLET (FP) PO PRN ×2 (21:57)
[2019-04-11] MEDS ORDERED: BISMUTH SUBSALICYLATE 524 MG/30 ML UD PO PRN (21:57)
[2019-04-11] MEDS ORDERED: MELATONIN 5 MG TABLETS PO PRN ×2 (21:57→22:06)
[2019-04-11] MEDS ORDERED: DICLOFENAC SODIUM 75 MG TABLET.DR PO PRN (22:03)
[2019-04-11] MEDS: chlordiazePOXIDE HCL 25 MG CAPSULE PO SCH (23:25)
[2019-04-11] MEDS: PANTOPRAZOLE 20 MG TABLET (FP) PO SCH (23:25)
[2019-04-11] MEDS: ROSUVASTATIN CA 20 MG TABLET (FP) PO SCH (23:25)
[2019-04-11] MEDS: CARVEDILOL 12.5 MG TABLET (FP) PO SCH (23:25)
[2019-04-11] MEDS: THIAMINE HCL 100 MG TABLET (FP) PO SCH (23:25)
[2019-04-11] MEDS: DOXAZOSIN MESYLATE 2 MG TABLET (FP) PO SCH (23:28)
[2019-04-12] MEDS: chlordiazePOXIDE HCL 25 MG CAPSULE PO SCH ×4 (05:52→22:22)
[2019-04-12] MEDS: CARVEDILOL 12.5 MG TABLET (FP) PO SCH ×2 (06:52→22:19)
[2019-04-12 10:01] LABS: ALBUMIN 3.6 g/dl (3.4-5.0); BILIRUBIN,TOTAL 0.5 mg/dL (0.2-1); BLOOD UREA NITROGEN 18.2 mg/dL (7-18); CALCIUM 9.9 mg/dL (8.5-10.1); CREATININE 1.4 mg/dL (0.55-1.3); POTASSIUM 3.2 mmol/L (3.5-5.1); TOT PROT 6.1 g/dl (6.4-8.2)
[2019-04-12 10:04] LABS: HEMATOCRIT 39.5 % (35.4-49); HEMOGLOBIN 13.8 GM/dL (11.7-16.9); MCH 31.3 pg (25.7-33.7); MCHC 34.9 g/dl (32.0-35.9); MEAN CELL VOLUME 89.7 fl (80-96); MEAN PLT VOLUME 9.4 fl (7.5-11.1); PLATELET COUNT 185 K/MM3 (134-434); RDW 12.9 % (11.9-15.9); WHITE BLOOD COUNT 4.7 K/mm3 (4.0-10.0)
[2019-04-12] MEDS: PRENATAL VITAMINS W/ FOLIC ACID TABLET (FP) PO SCH (10:35)
[2019-04-12] MEDS: ASPIRIN 81 MG CHEWABLE TABLETS PO SCH (10:35)
[2019-04-12] MEDS: amLODIPine BESYLATE 10 MG TABLET (FP) PO SCH (10:35)
[2019-04-12] MEDS: PANTOPRAZOLE 20 MG TABLET (FP) PO SCH ×2 (10:35→22:19)
--- NOTE | 2019-04-12 12:47 | PN ---
S CIWA - CIWA Score Nausea/Vomitin-No Nausea/No Vomiting Muscle Tremors: 2 Anxiety: 3 Agitation: 0-Normal Activity Paroxysmal Sweats: 3 Orientation: 0-Oriented Tacttile Disturbances: 0-None Auditory Disturbances: 0-None Visual Disturbances: 0-None Headache: 2-Mild CIWA-Ar Total Score: 10 BHS Progress Note (SOAP) Subjective: c/o anxiety, sweats, anxiety, and headache. Objective: 04/12/19 12:43 Vital Signs 04/12/19 04/12/19 06:45 09:57 Temperature 98.2 F 96.4 F L Pulse Rate 56 L 59 L Respiratory 16 18 Rate Blood Pressure 120/82 126/81 Lab Results WBC 4.7 K/mm3 (4.0-10.0) 04/12/19 08:00 RBC 4.40 M/mm3 (4.00-5.60) 04/12/19 08:00 Hgb 13.8 GM/dL (11.7-16.9) 04/12/19 08:00 Hct 39.5 % (35.4-49) 04/12/19 08:00 MCV 89.7 fl (80-96) 04/12/19 08:00 MCHC 34.9 g/dl (32.0-35.9) 04/12/19 08:00 RDW 12.9 % (11.9-15.9) 04/12/19 08:00 Plt Count 185 K/MM3 (134-434) 04/12/19 08:00 Sodium 142 mmol/L (136-145) 04/12/19 08:00 Potassium 3.2 mmol/L (3.5-5.1) L 04/12/19 08:00 Chloride 106 mmol/L (98-107) 04/12/19 08:00 Carbon Dioxide 30 mmol/L (21-32) 04/12/19 08:00 Anion Gap 6 MMOL/L (8-16) L 04/12/19 08:00 BUN 18.2 mg/dL (7-18) H 04/12/19 08:00 Creatinine 1.4 mg/dL (0.55-1.3) H 04/12/19 08:00 Random Glucose 90 mg/dL (74-106) 04/12/19 08:00 Calcium 9.9 mg/dL (8.5-10.1) 04/12/19 08:00 Labs noted. Assessment: 04/12/19 12:43 AOX3, in no acute respiratory distress Full ROM, ambulating in the unit. withdrawal symptoms. Plan: continue detox.
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
--- NOTE | 2019-04-12 15:21 | EKG ---
Test Reason : Blood Pressure : / mmHG Vent. Rate : 078 BPM Atrial Rate : 078 BPM P-R Int : 146 ms QRS Dur : 088 ms QT Int : 398 ms P-R-T Axes : 063 053 -08 degrees QTc Int : 453 ms NORMAL SINUS RHYTHM NONSPECIFIC ST AND T WAVE ABNORMALITY ABNORMAL ECG WHEN COMPARED WITH ECG OF 22-JUN-2018 22:12, QUESTIONABLE CHANGE IN QRS AXIS Confirmed by MD Livan, Hever ([id number]) on 04/12/2019 3:21:13 PM Referred By: Aria Newman Confirmed By:Hever Licona MD
[2019-04-12] MEDS: DOXAZOSIN MESYLATE 2 MG TABLET (FP) PO SCH (22:19)
[2019-04-12] MEDS: THIAMINE HCL 100 MG TABLET (FP) PO SCH (22:19)
[2019-04-12] MEDS: ROSUVASTATIN CA 20 MG TABLET (FP) PO SCH (22:19)
[2019-04-13] MEDS: chlordiazePOXIDE HCL 25 MG CAPSULE PO SCH ×2 (07:19→10:06)
[2019-04-13] MEDS: CARVEDILOL 12.5 MG TABLET (FP) PO SCH ×2 (07:20→22:27)
[2019-04-13] MEDS: amLODIPine BESYLATE 10 MG TABLET (FP) PO SCH (10:06)
[2019-04-13] MEDS: ASPIRIN 81 MG CHEWABLE TABLETS PO SCH (10:06)
[2019-04-13] MEDS: PANTOPRAZOLE 20 MG TABLET (FP) PO SCH ×2 (10:06→22:27)
[2019-04-13] MEDS: PRENATAL VITAMINS W/ FOLIC ACID TABLET (FP) PO SCH (10:06)
--- NOTE | 2019-04-13 14:12 | PN ---
S CIWA - CIWA Score Nausea/Vomitin-No Nausea/No Vomiting Muscle Tremors: 2 Anxiety: 2 Agitation: 2 Paroxysmal Sweats: No Perspiration Orientation: 0-Oriented Tacttile Disturbances: 0-None Auditory Disturbances: 0-None Visual Disturbances: 0-None Headache: 0-None Present CIWA-Ar Total Score: 6 BHS Progress Note (SOAP) Subjective: 53 years old male admitted on 04/11/19 for acute alcohol withdrawal sx management doing well with librium detox protocol prefers to be discharge early for alcohol rehab facility less tremor and sweat Objective: 04/13/19 14:14 Vital Signs Temperature 97.0 F L 04/13/19 14:07 Pulse Rate 64 04/13/19 14:07 Respiratory Rate 18 04/13/19 14:07 Blood Pressure 157/92 04/13/19 14:07 O2 Sat by Pulse Oximetry (%) Laboratory Last Values WBC 4.7 K/mm3 (4.0-10.0) 04/12/19 08:00 RBC 4.40 M/mm3 (4.00-5.60) 04/12/19 08:00 Hgb 13.8 GM/dL (11.7-16.9) 04/12/19 08:00 Hct 39.5 % (35.4-49) 04/12/19 08:00 MCV 89.7 fl (80-96) 04/12/19 08:00 MCH 31.3 pg (25.7-33.7) 04/12/19 08:00 MCHC 34.9 g/dl (32.0-35.9) 04/12/19 08:00 RDW 12.9 % (11.9-15.9) 04/12/19 08:00 Plt Count 185 K/MM3 (134-434) 04/12/19 08:00 MPV 9.4 fl (7.5-11.1) 04/12/19 08:00 Sodium 142 mmol/L (136-145) 04/12/19 08:00 Potassium 3.2 mmol/L (3.5-5.1) L 04/12/19 08:00 Chloride 106 mmol/L (98-107) 04/12/19 08:00 Carbon Dioxide 30 mmol/L (21-32) 04/12/19 08:00 Anion Gap 6 MMOL/L (8-16) L 04/12/19 08:00 BUN 18.2 mg/dL (7-18) H 04/12/19 08:00 Creatinine 1.4 mg/dL (0.55-1.3) H 04/12/19 08:00 Est GFR (CKD-EPI)AfAm 66.95 04/12/19 08:00 Est GFR (CKD-EPI)NonAf 57.76 04/12/19 08:00 Random Glucose 90 mg/dL (74-106) 04/12/19 08:00 Calcium 9.9 mg/dL (8.5-10.1) 04/12/19 08:00 Total Bilirubin 0.5 mg/dL (0.2-1) 04/12/19 08:00 AST 15 U/L (15-37) 04/12/19 08:00 ALT 24 U/L (13-61) 04/12/19 08:00 Alkaline Phosphatase 55 U/L (45-117) 04/12/19 08:00 Total Protein 6.1 g/dl (6.4-8.2) L 04/12/19 08:00 Albumin 3.6 g/dl (3.4-5.0) 04/12/19 08:00 RPR Titer Nonreactive (NONREACTIVE) 04/12/19 08:00 lab noted Assessment: 04/13/19 14:14 alcohol withdrawal sx Plan: continue librium detox regimen patient wants to leave the detox today discuss risks of AMA patient agrees to stay today but discharge earlier that estimated discharge date 04/16/19 modify librium detox regimen to meet the preference of the patient
[2019-04-13] MEDS ORDERED: chlordiazePOXIDE HCL 25 MG CAPSULE PO SCH (17:00)
[2019-04-13] MEDS ORDERED: chlordiazePOXIDE HCL 10 MG CAPSULE PO SCH (20:01)
[2019-04-13] MEDS: THIAMINE HCL 100 MG TABLET (FP) PO SCH (22:27)
[2019-04-13] MEDS: DOXAZOSIN MESYLATE 2 MG TABLET (FP) PO SCH (22:56)
[2019-04-13] MEDS: ROSUVASTATIN CA 20 MG TABLET (FP) PO SCH (22:57)
[2019-04-14] MEDS ORDERED: chlordiazePOXIDE HCL 10 MG CAPSULE PO PRN
[2019-04-14] MEDS ORDERED: chlordiazePOXIDE HCL 10 MG CAPSULE PO SCH (05:00)
[2019-04-14] MEDS: chlordiazePOXIDE HCL 10 MG CAPSULE PO SCH ×2 (05:59→10:06)
[2019-04-14] MEDS: CARVEDILOL 12.5 MG TABLET (FP) PO SCH (06:28)
[2019-04-14 09:38] VITALS: BP 161/115; PULSE 75; TEMP 96.9
[2019-04-14] MEDS: amLODIPine BESYLATE 10 MG TABLET (FP) PO SCH (10:06)
[2019-04-14] MEDS: PRENATAL VITAMINS W/ FOLIC ACID TABLET (FP) PO SCH (10:06)
[2019-04-14] MEDS: PANTOPRAZOLE 20 MG TABLET (FP) PO SCH (10:06)
[2019-04-14] MEDS: ASPIRIN 81 MG CHEWABLE TABLETS PO SCH (10:06)
--- NOTE | 2019-04-14 13:37 | DS ---
[facility] Detox Discharge Summary Admission Date: 04/11/19 Discharge Date: 04/14/19 - History Present History: Alcohol Dependence Additional Comments: 53 years old male admitted on 04/11/19 for acute alcohol withdrawal sx management doing well with librium detox protocol no complication through out the detox stay alert oriented x 3 S1S2 clear lung bilaterally abdomen soft none tender Pertinent Past History: ambulating with walker hypertension treated with amlodipin and carvedilol may increase dosage - Physical Exam Results Vital Signs: Vital Signs Temperature 96.9 F L 04/14/19 09:38 Pulse Rate 75 04/14/19 09:38 Respiratory Rate 18 04/14/19 09:38 Blood Pressure 161/115 H 04/14/19 09:38 O2 Sat by Pulse Oximetry (%) Pertinent Admission Physical Exam Findings: alcohol withdrawal sx Laboratory Last Values WBC 4.7 K/mm3 (4.0-10.0) 04/12/19 08:00 RBC 4.40 M/mm3 (4.00-5.60) 04/12/19 08:00 Hgb 13.8 GM/dL (11.7-16.9) 04/12/19 08:00 Hct 39.5 % (35.4-49) 04/12/19 08:00 MCV 89.7 fl (80-96) 04/12/19 08:00 MCH 31.3 pg (25.7-33.7) 04/12/19 08:00 MCHC 34.9 g/dl (32.0-35.9) 04/12/19 08:00 RDW 12.9 % (11.9-15.9) 04/12/19 08:00 Plt Count 185 K/MM3 (134-434) 04/12/19 08:00 MPV 9.4 fl (7.5-11.1) 04/12/19 08:00 Sodium 142 mmol/L (136-145) 04/12/19 08:00 Potassium 3.2 mmol/L (3.5-5.1) L 04/12/19 08:00 Chloride 106 mmol/L (98-107) 04/12/19 08:00 Carbon Dioxide 30 mmol/L (21-32) 04/12/19 08:00 Anion Gap 6 MMOL/L (8-16) L 04/12/19 08:00 BUN 18.2 mg/dL (7-18) H 04/12/19 08:00 Creatinine 1.4 mg/dL (0.55-1.3) H 04/12/19 08:00 Est GFR (CKD-EPI)AfAm 66.95 04/12/19 08:00 Est GFR (CKD-EPI)NonAf 57.76 04/12/19 08:00 Random Glucose 90 mg/dL (74-106) 04/12/19 08:00 Calcium 9.9 mg/dL (8.5-10.1) 04/12/19 08:00 Total Bilirubin 0.5 mg/dL (0.2-1) 04/12/19 08:00 AST 15 U/L (15-37) 04/12/19 08:00 ALT 24 U/L (13-61) 04/12/19 08:00 Alkaline Phosphatase 55 U/L (45-117) 04/12/19 08:00 Total Protein 6.1 g/dl (6.4-8.2) L 04/12/19 08:00 Albumin 3.6 g/dl (3.4-5.0) 04/12/19 08:00 RPR Titer Nonreactive (NONREACTIVE) 04/12/19 08:00 lab noted alert oriented x 3 \ - Treatment Hospital Course: Detox Protocol Followed, Detoxed Safely, Responded well, Discharged Condition Good, Rehab Referral Accepted Patient has Accepted [facility] - Medication Discharge Medications: Ambulatory Orders Aspirin [ASA -] 81 mg PO DAILY #14 tab.chew 08/26/18 Doxazosin Mesylate [Cardura -] 2 mg PO HS #14 tablet 08/26/18 Amlodipine Besylate [Norvasc -] 10 mg PO DAILY #30 tablet 04/14/19 Carvedilol [Coreg -] 37.5 mg PO BID@0600,2200 #30 tablet 04/14/19 Rosuvastatin Calcium [Crestor] 20 mg PO HS 14 Days #30 tablet 04/14/19 - Diagnosis (1) Alcohol dependence with uncomplicated withdrawal Status: Acute (2) Essential (primary) hypertension Status: Chronic (3) Hypercholesterolemia Status: Chronic (4) Hypokalemia Status: Acute (5) PPD positive, treated Status: Resolved - AMA Did Patient Leave Against Medical Advice: No
[2019-04-15] MEDS ORDERED: chlordiazePOXIDE HCL 10 MG CAPSULE PO SCH (05:00)
[2019-04-15] MEDS ORDERED: chlordiazePOXIDE HCL 10 MG CAPSULE PO ONE (05:00)
[2019-04-16] MEDS ORDERED: chlordiazePOXIDE HCL 10 MG CAPSULE PO ONE (05:00)
== END 2019-04-14 13:33 | disposition home or self-care (01) | DRG 774 ==
LOC: YASAS 16:28 → Y3N 22:23
PROVIDERS: ADMIT Surgery; ATTEND Surgery
PROC: HZ2ZZZZ Detoxification Services for Substance Abuse Treatment (ICD-10-PCS; principal; 2019-04-11)
DX: F10.230 Alcohol dependence with withdrawal, uncomplicated (principal); F14.20 Cocaine dependence, uncomplicated; F19.24 Other psychoactive substance dependence with psychoactive substance-induced mood disorder; F33.1 Major depressive disorder, recurrent, moderate; F43.10 Post-traumatic stress disorder, unspecified; I10 Essential (primary) hypertension; E87.6 Hypokalemia; R76.11 Nonspecific reaction to tuberculin skin test without active tuberculosis; E21.3 Hyperparathyroidism, unspecified; I69.398 Other sequelae of cerebral infarction; H53.9 Unspecified visual disturbance; G47.00 Insomnia, unspecified; E66.9 Obesity, unspecified; Z68.32 Body mass index [BMI] 32.0-32.9, adult; Z87.891 Personal history of nicotine dependence
CPT/HCPCS: 36415; 80053; 85027; 86593; 93005; 93010

== ENCOUNTER 2019-09-02 12:35 | Inpatient (IN) | payer OTHER ==
[2019-09-02 14:30] VITALS: BMI 32.4
--- NOTE | 2019-09-02 15:22 | HP ---
CIWA Score Nausea/Vomitin Muscle Tremors: 1-None Visible, but [place] Anxiety: 5 Agitation: 1-Slight > Activity Paroxysmal Sweats: 4-Forehead w/Sweat Beads Orientation: 0-Oriented Tacttile Disturbances: 0-None Auditory Disturbances: 0-None Visual Disturbances: 0-None Headache: 0-None Present CIWA-Ar Total Score: 13 - Admission Criteria OASAS Guidelines: Admission for Medically Managed Detox: Requires at least one of the followin. CIWA greater than 12 2. Seizures within the past 24 hours 3. Delirium tremens within the past 24 hours 4. Hallucinations within the past 24 hours 5. Acute intervention needed for co occurring medical disorder 6. Acute intervention needed for co occurring psychiatric disorder 7. Severe withdrawal that cannot be handled at a lower level of care (continued vomiting, continued diarrhea, abnormal vital signs) requiring intravenous medication and/or fluids 8. Admitting History and Physical - Admission Chief Complaint: detox from alcohol History of Present Illness: Mr. Yates is a 53 year old man with a pmhx of HTN, HLD who presents today to detox from alcohol and cocaine. He last completed detox in April but has not recollection of it. He states he is drinking mostly on weekends and that he is drinking mixed drinks at home like margarits, martinis, cognac. He makes the drinks at home, he is unsure how much he drinks but he states he bought a large 20 dollar bottle of venkat gopi at [employer] and it lasts him 2 days. He also drinks vodka which lasts him about 3 days. He states his last drink was last night around 3 or 4am. He was drinking martinis by himself. Today his JAZMÍN was 0.103. He states during the week he doesn't feel withdrawal sx because he takes klonopin, 3mg/ day, which he states is prescribed by his psychiatrist for depression, anxiety and PTSD. He also states that his psychiatrist states he should take klonopin after binging on alcohol all weekend to prevent serious complications from alcohol withdrawal. The pt denies ever having a seizure from withdrawing from alcohol and states he has never blacked out. He also states that he is also using cocaine which he is also addicted to. He states he smokes crack, and spends about $200-300 dollars/ week on crack. He is retired, and currently live with his and children in an apartment. Pt is hypertensive on admission most likely 2/2 withdrawal and the fact that he states he is managing his HTN with a vegan diet. On previous admission pt's BP was controlled with Norvasc and Coreg. Will resume pt's Norvasc at this time, if pt's BP remains uncontrolled consider adding Coreg. - Smoking History Smoking history: Former smoker Have you smoked in the past 12 months: No Aproximately how many cigarettes per day: 0 If you are a former smoker, when did you quit?: 1979 - Alcohol/Substance Use Hx Alcohol Use: Yes Admission ROS BHS - HPI Allergies/Adverse Reactions: Allergies Allergy/AdvReac Type Severity Reaction Status Date / Time No Known Allergies Allergy Verified 09/02/19 14:20 - Ebola screening Have you traveled outside of the country in the last 21 days: No Have you had contact with anyone from an Ebola affected area: No Do you have a fever: No - Review of Systems Constitutional: Diaphoresis EENT: denies: Eye Pain, Ear Pain, Throat Pain Respiratory: denies: Cough, Shortness of Breath Cardiac: denies: Chest Pain, Lightheadedness, Palpitations GI: reports: Nausea. denies: Constipated, Diarrhea, Vomiting : denies: Burning Integumentary: reports: No Symptoms Reported Neuro: denies: Headache, Numbness, Paresthesia, Tingling Endocrine: reports: No Symptoms Reported Hematology: denies: Blood Clots, Easy Bruising Psychiatric: reports: Anxious. denies: Agitated, Depressed Other Systems: Reviewed and Negative Patient History - Patient Medical History Hx Anemia: No Hx Asthma: No Hx Chronic Obstructive Pulmonary Disease (COPD): No Hx Cancer: No Hx Cardiac Disorders: No Hx Hypertension: Yes (Norvasc, coreg, hydralazine, ASA) Hx Hypercholesterolemia: Yes Hx Pacemaker: No HX Cerebrovascular Accident: Yes (2012 diminish vision left) Hx Seizures: No Hx Dementia: No Hx Diabetes: No Hx Gastrointestinal Disorders: No Hx Liver Disease: No Hx Genitourinary Disorders: No Hx Sexually Transmitted Disorders: No Hx Renal Disease (ESRD): No Hx Thyroid Disease: Yes (hyperparathyroidism ) Hx Human Immunodeficiency Virus (HIV): No Hx Hepatitis C: No Hx Depression: Yes Hx Suicide Attempt: No Hx Bipolar Disorder: No Hx Schizophrenia: No - Patient Surgical History Past Surgical History: No Hx Neurologic Surgery: No Hx Cataract Extraction: No Hx Cardiac Surgery: No Hx Lung Surgery: No Hx Breast Surgery: No Hx Breast Biopsy: No Hx Abdominal Surgery: No Hx Appendectomy: No Hx Cholecystectomy: No Hx Genitourinary Surgery: No Hx Section: No Hx Orthopedic Surgery: No Anesthesia Reaction: No - PPD History Date: 11/11/18 Results: NEGATIVE CXR - Smoking Cessation Smoking history: Former smoker Have you smoked in the past 12 months: No Aproximately how many cigarettes per day: 0 If you are a former smoker, when did you quit?: 1979 Cigars Per Day: 0 Hx Chewing Tobacco Use: No Initiated information on smoking cessation: Yes 'Breaking Loose' booklet given: 09/02/19 - Substances abused Alcohol Substance route: Oral Frequency: Daily Amount used: 5th of vodka Age of first use: 23 Date of last use: 09/01/19 Cocaine Substance route: Smoking Frequency: 1-2 times per week Amount used: 2 grams Age of first use: 35 Date of last use: 09/01/19 Marijuana/Hashish Substance route: Smoking Frequency: Daily Amount used: $5 Age of first use: 17 Date of last use: 09/01/19 Admission Physical Exam BHS - Vital Signs Vital Signs: Vital Signs - 24 hr 09/02/19 14:19 Temperature 98.9 F Pulse Rate 105 H Respiratory 20 Rate Blood Pressure 159/99 - Physical General Appearance: Yes: Within Normal Limits, Mild Distress, Anxious HEENTM: Yes: EOMI, Normal ENT Inspection Respiratory: Yes: Within Normal Limits, Chest Non-Tender, Lungs Clear, Normal Breath Sounds Neck: Yes: Within Normal Limits, No masses,lesions,Nodules, Trachea in good position Cardiology: Yes: Within Normal Limits, Regular Rhythm, Regular Rate, S1, S2 Abdominal: Yes: Within Normal Limits, Normal Bowel Sounds, Non Tender, Flat, Soft Back: Yes: Within Normal Limits, Normal Inspection. No: CVA Tenderness Musculoskeletal: Yes: Within Normal Limits, full range of Motion, Gait Steady Extremities: Yes: Within Normal Limits, Normal Capillary Refill, Normal Inspection, Normal Range of Motion Neurological: Yes: Within Normal Limits, director utilization management II-XII NML intact, Fully Oriented, Motor Strength 5/5, Normal Mood/Affect Integumentary: Yes: Within Normal Limits, Normal Color Breathalyzer - Breathalyzer Breathalyzer: 0.103 Urine Drug Screen - Test Device Lot number: [id number] Expiration date: 04/02/21 - Control Is test valid?: Yes - Results Drug screen NEGATIVE: Yes Urine drug screen results: THC-Marijuana, MAURICE-Cocaine Inpatient Rehab Admission - Rehab Decision to Admit Inpatient rehab admission?: No
--- NOTE | 2019-09-02 16:29 | PN ---
Teaching Attending Note Name of Resident: Lisbeth Hernandez ATTENDING PHYSICIAN STATEMENT I saw and evaluated the patient. I reviewed the resident's note and discussed the case with the resident. I agree with the resident's findings and plan as documented. SUBJECTIVE: 53 yo with AUD, h/o PTSD/depression here for alcohol detox. Large amount of cocaine use. Pt is on Klonopin 3mg/day. Pt has not been taking. OBJECTIVE: Vital Signs - 24 hr 09/02/19 14:19 Temperature 98.9 F Pulse Rate 105 H Respiratory 20 Rate Blood Pressure 159/99 high CIWA score tremulous ASSESSMENT AND PLAN: AUD- librium detox, prn valium, pt understands he will not get his usual doses of klonopin Pt states he needs to be inpt as he is risking increased intake of alcohol and cocaine.
[2019-09-02] MEDS ORDERED: METHOCARBAMOL 500 MG TABLET PO PRN (16:30)
[2019-09-02] MEDS ORDERED: MAGNESIUM HYDROX 2400MG/30ML ORAL SUSPENSION 30 ML CUP PO PRN (16:30)
[2019-09-02] MEDS ORDERED: MENTHOL/PHENOL 1 EACH UD MM PRN (16:30)
[2019-09-02] MEDS ORDERED: MAG HYDROX/AL HYDROX/SIMETH 30 ML UNIT-DOSE CUP PO PRN (16:30)
[2019-09-02] MEDS ORDERED: chlordiazePOXIDE HCL 25 MG CAPSULE PO PRN (16:30)
[2019-09-02] MEDS ORDERED: IBUPROFEN 400 MG TABLET (FP) PO PRN (16:30)
[2019-09-02] MEDS ORDERED: MAGNESIUM CITRATE 300 ML BOTTLE PO PRN (16:30)
[2019-09-02] MEDS ORDERED: BISMUTH SUBSALICYLATE 524 MG/30 ML UD PO PRN (16:30)
[2019-09-02] MEDS ORDERED: ACETAMINOPHEN 325 MG TABLET (FP) PO PRN ×2 (16:30)
[2019-09-02] MEDS ORDERED: cloNIDine HCL 0.1 MG TABLET PO PRN (16:37)
[2019-09-02] MEDS: chlordiazePOXIDE HCL 25 MG CAPSULE PO SCH ×2 (17:48→22:20)
[2019-09-02] MEDS: hydrOXYzine PAMOATE 25 MG CAPSULE (FP) PO PRN (17:48)
[2019-09-02] MEDS ORDERED: MELATONIN 5 MG TABLETS PO PRN (22:00)
[2019-09-02] MEDS: THIAMINE HCL 100 MG TABLET (FP) PO SCH (22:21)
[2019-09-03] MEDS: chlordiazePOXIDE HCL 25 MG CAPSULE PO SCH ×4 (06:51→22:26)
[2019-09-03] MEDS: PRENATAL VITAMINS W/ FOLIC ACID TABLET (FP) PO SCH (10:27)
[2019-09-03] MEDS: amLODIPine BESYLATE 10 MG TABLET (FP) PO SCH (10:28)
[2019-09-03 10:31] LABS: HEMATOCRIT 42.7 % (35.4-49); HEMOGLOBIN 14.7 GM/dL (11.7-16.9); MCH 31.3 pg (25.7-33.7); MCHC 34.3 g/dl (32.0-35.9); MEAN CELL VOLUME 91.1 fl (80-96); PLATELET COUNT 207 K/MM3 (134-434); RBC 4.68 M/mm3 (4.00-5.60); RDW 13.6 % (11.9-15.9); WHITE BLOOD COUNT 4.9 K/mm3 (4.0-10.0)
[2019-09-03 11:02] LABS: ALBUMIN 3.7 g/dl (3.4-5.0); BILIRUBIN,TOTAL 0.5 mg/dL (0.2-1); BLOOD UREA NITROGEN 18.4 mg/dL (7-18); CREATININE 1.4 mg/dL (0.55-1.3); POTASSIUM 3.2 mmol/L (3.5-5.1); TOT PROT 6.4 g/dl (6.4-8.2)
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
--- NOTE | 2019-09-03 12:30 | PN ---
[facility] CIWA - CIWA Score Nausea/Vomitin-Mild Nausea/No Vomiting Muscle Tremors: 3 Anxiety: 2 Agitation: 2 Paroxysmal Sweats: No Perspiration Orientation: 0-Oriented Tacttile Disturbances: 1-Very Mild Itch/Numbness Auditory Disturbances: 0-None Visual Disturbances: 0-None Headache: 1-Very Mild CIWA-Ar Total Score: 10 S Progress Note (SOAP) Subjective: alert,irritable,anxious,interrupted sleep,tremor Objective: 09/03/19 12:28 Vital Signs Temperature 97.5 F L 09/03/19 10:05 Pulse Rate 74 09/03/19 10:05 Respiratory Rate 189 H 09/03/19 10:05 Blood Pressure 136/101 H 09/03/19 10:05 O2 Sat by Pulse Oximetry (%) 09/03/19 12:29 Laboratory Last Values WBC 4.9 K/mm3 (4.0-10.0) 09/03/19 07:40 RBC 4.68 M/mm3 (4.00-5.60) 09/03/19 07:40 Hgb 14.7 GM/dL (11.7-16.9) 09/03/19 07:40 Hct 42.7 % (35.4-49) 09/03/19 07:40 MCV 91.1 fl (80-96) 09/03/19 07:40 MCH 31.3 pg (25.7-33.7) 09/03/19 07:40 MCHC 34.3 g/dl (32.0-35.9) 09/03/19 07:40 RDW 13.6 % (11.9-15.9) 09/03/19 07:40 Plt Count 207 K/MM3 (134-434) 09/03/19 07:40 MPV 9.0 fl (7.5-11.1) 09/03/19 07:40 Sodium 142 mmol/L (136-145) 09/03/19 07:40 Potassium 3.2 mmol/L (3.5-5.1) L 09/03/19 07:40 Chloride 107 mmol/L (98-107) 09/03/19 07:40 Carbon Dioxide 28 mmol/L (21-32) 09/03/19 07:40 Anion Gap 7 MMOL/L (8-16) L 09/03/19 07:40 BUN 18.4 mg/dL (7-18) H 09/03/19 07:40 Creatinine 1.4 mg/dL (0.55-1.3) H 09/03/19 07:40 Est GFR (CKD-EPI)AfAm 66.95 09/03/19 07:40 Est GFR (CKD-EPI)NonAf 57.76 09/03/19 07:40 Random Glucose 111 mg/dL (74-106) H 09/03/19 07:40 Calcium 10.0 mg/dL (8.5-10.1) 09/03/19 07:40 Total Bilirubin 0.5 mg/dL (0.2-1) 09/03/19 07:40 AST 15 U/L (15-37) 09/03/19 07:40 ALT 27 U/L (13-61) 09/03/19 07:40 Alkaline Phosphatase 53 U/L (45-117) 09/03/19 07:40 Total Protein 6.4 g/dl (6.4-8.2) 09/03/19 07:40 Albumin 3.7 g/dl (3.4-5.0) 09/03/19 07:40 RPR Titer Nonreactive (NONREACTIVE) 09/03/19 07:40 Assessment: 09/03/19 12:29 withdrawal symptom Plan: continue detox librium regimen,k is 3.2 hypokalemia,k dur 20 meq po now then daily for 3 days,bun 18.4,creatiine 1.4,glucose 111, encourage oral fluid,may be dehydration,will do fasting glucose in am,repeat bmp in am
[2019-09-03] MEDS ORDERED: POTASSIUM CHLORIDE TABS 20 MEQ TABLET.ER (FP) PO ONE (13:00)
[2019-09-03] MEDS: THIAMINE HCL 100 MG TABLET (FP) PO SCH (22:26)
[2019-09-04] MEDS: chlordiazePOXIDE HCL 25 MG CAPSULE PO SCH ×4 (07:09→22:00)
--- NOTE | 2019-09-04 10:21 | PN ---
S CIWA - CIWA Score Nausea/Vomitin-No Nausea/No Vomiting Muscle Tremors: 2 Anxiety: 3 Agitation: 0-Normal Activity Paroxysmal Sweats: 3 Orientation: 0-Oriented Tacttile Disturbances: 0-None Auditory Disturbances: 0-None Visual Disturbances: 0-None Headache: 1-Very Mild CIWA-Ar Total Score: 9 BHS Progress Note (SOAP) Subjective: c/o sweats, anxiety, shakes, and headache. Objective: 09/04/19 10:19 Vital Signs 09/04/19 09/04/19 09/04/19 03:30 07:19 09:33 Temperature 97.9 F 96.4 F L Pulse Rate 18 L 67 Respiratory 18 74 H 18 Rate Blood Pressure 128/70 158/102 H Laboratory Last Values WBC 4.9 K/mm3 (4.0-10.0) 09/03/19 07:40 RBC 4.68 M/mm3 (4.00-5.60) 09/03/19 07:40 Hgb 14.7 GM/dL (11.7-16.9) 09/03/19 07:40 Hct 42.7 % (35.4-49) 09/03/19 07:40 MCV 91.1 fl (80-96) 09/03/19 07:40 MCH 31.3 pg (25.7-33.7) 09/03/19 07:40 MCHC 34.3 g/dl (32.0-35.9) 09/03/19 07:40 RDW 13.6 % (11.9-15.9) 09/03/19 07:40 Plt Count 207 K/MM3 (134-434) 09/03/19 07:40 MPV 9.0 fl (7.5-11.1) 09/03/19 07:40 Sodium 142 mmol/L (136-145) 09/03/19 07:40 Potassium 3.2 mmol/L (3.5-5.1) L 09/03/19 07:40 Chloride 107 mmol/L (98-107) 09/03/19 07:40 Carbon Dioxide 28 mmol/L (21-32) 09/03/19 07:40 Anion Gap 7 MMOL/L (8-16) L 09/03/19 07:40 BUN 18.4 mg/dL (7-18) H 09/03/19 07:40 Creatinine 1.4 mg/dL (0.55-1.3) H 09/03/19 07:40 Est GFR (CKD-EPI)AfAm 66.95 09/03/19 07:40 Est GFR (CKD-EPI)NonAf 57.76 09/03/19 07:40 Random Glucose 111 mg/dL (74-106) H 09/03/19 07:40 Calcium 10.0 mg/dL (8.5-10.1) 09/03/19 07:40 Total Bilirubin 0.5 mg/dL (0.2-1) 09/03/19 07:40 AST 15 U/L (15-37) 09/03/19 07:40 ALT 27 U/L (13-61) 09/03/19 07:40 Alkaline Phosphatase 53 U/L (45-117) 09/03/19 07:40 Total Protein 6.4 g/dl (6.4-8.2) 09/03/19 07:40 Albumin 3.7 g/dl (3.4-5.0) 09/03/19 07:40 RPR Titer Nonreactive (NONREACTIVE) 09/03/19 07:40 Labs noted. Assessment: 09/04/19 10:19 AOX3, in no acute respiratory distress. Full ROM, ambulating in the unit. Withdrawal symptoms. Awaiting for repeat K+ level. Plan: continue detox. Increase fluids.
[2019-09-04] MEDS: POTASSIUM CHLORIDE TABS 20 MEQ TABLET.ER (FP) PO SCH (10:23)
[2019-09-04] MEDS: PRENATAL VITAMINS W/ FOLIC ACID TABLET (FP) PO SCH (10:23)
[2019-09-04] MEDS: amLODIPine BESYLATE 10 MG TABLET (FP) PO SCH (10:23)
[2019-09-04 10:31] LABS: BLOOD UREA NITROGEN 18.9 mg/dL (7-18); CALCIUM 9.8 mg/dL (8.5-10.1); POTASSIUM 3.7 mmol/L (3.5-5.1)
[2019-09-04] MEDS: THIAMINE HCL 100 MG TABLET (FP) PO SCH (21:24)
[2019-09-04] MEDS: hydrOXYzine PAMOATE 25 MG CAPSULE (FP) PO PRN (21:24)
[2019-09-05] MEDS ORDERED: chlordiazePOXIDE HCL 10 MG CAPSULE PO PRN
[2019-09-05] MEDS: chlordiazePOXIDE HCL 10 MG CAPSULE PO SCH ×4 (06:51→22:11)
[2019-09-05] MEDS: PRENATAL VITAMINS W/ FOLIC ACID TABLET (FP) PO SCH (10:51)
[2019-09-05] MEDS: amLODIPine BESYLATE 10 MG TABLET (FP) PO SCH (10:51)
[2019-09-05] MEDS: POTASSIUM CHLORIDE TABS 20 MEQ TABLET.ER (FP) PO SCH (10:51)
--- NOTE | 2019-09-05 10:55 | PN ---
[facility] CIWA - CIWA Score Nausea/Vomitin-Mild Nausea/No Vomiting Muscle Tremors: 2 Anxiety: 1-Mildly Anxious Agitation: 1-Slight > Activity Paroxysmal Sweats: No Perspiration Orientation: 0-Oriented Tacttile Disturbances: 0-None Auditory Disturbances: 0-None Visual Disturbances: 0-None Headache: 0-None Present CIWA-Ar Total Score: 5 BHS Progress Note (SOAP) Subjective: Pt resting in bed- says he is feeling tired. O: Vital Signs - 24 hr 09/04/19 09/04/19 09/04/19 12:55 17:09 20:38 Temperature 97.2 F L 97.7 F 97.9 F Pulse Rate 69 70 80 Respiratory 17 18 18 Rate Blood Pressure 148/97 133/73 147/103 H 09/04/19 09/04/19 09/05/19 21:23 23:38 00:30 Temperature 97.9 F 97.9 F Pulse Rate 80 72 Respiratory 18 18 18 Rate Blood Pressure 147/103 H 155/97 09/05/19 09/05/19 09/05/19 03:30 06:00 09:35 Temperature 97.2 F L 97.5 F L Pulse Rate 63 82 Respiratory 16 20 18 Rate Blood Pressure 139/66 155/104 H Laboratory Tests 09/03/19 09/03/19 09/03/19 07:40 07:40 07:40 WBC 4.9 RBC 4.68 Hgb 14.7 Hct 42.7 MCV 91.1 MCH 31.3 MCHC 34.3 RDW 13.6 Plt Count 207 MPV 9.0 Sodium 142 Potassium 3.2 L Chloride 107 Carbon Dioxide 28 Anion Gap 7 L BUN 18.4 H Creatinine 1.4 H Est GFR (CKD-EPI)AfAm 66.95 Est GFR (CKD-EPI)NonAf 57.76 Random Glucose 111 H Fasting Glucose Calcium 10.0 Total Bilirubin 0.5 AST 15 ALT 27 Alkaline Phosphatase 53 Total Protein 6.4 Albumin 3.7 RPR Titer Nonreactive 09/04/19 09/04/19 08:00 08:00 WBC RBC Hgb Hct MCV MCH MCHC RDW Plt Count MPV Sodium 144 Potassium 3.7 Chloride 110 H Carbon Dioxide 30 Anion Gap 4 L BUN 18.9 H Creatinine 1.0 Est GFR (CKD-EPI)AfAm 100.55 Est GFR (CKD-EPI)NonAf 86.76 Random Glucose 106 Fasting Glucose 107 H Calcium 9.8 Total Bilirubin AST ALT Alkaline Phosphatase Total Protein Albumin RPR Titer a/p: AUD- pt on librium taper for detox HTN- on Norvasc, says he also takes Cardura and apresoling. Will add to regimen.
[2019-09-05] MEDS ORDERED: hydrALAZINE HCL 25 MG TABLET (FP) PO SCH (14:00)
[2019-09-05] MEDS ORDERED: DOXAZOSIN MESYLATE 2 MG TABLET (FP) PO SCH ×2 (22:00)
[2019-09-05] MEDS: THIAMINE HCL 100 MG TABLET (FP) PO SCH (22:11)
[2019-09-06] MEDS ORDERED: chlordiazePOXIDE HCL 10 MG CAPSULE PO SCH (05:00)
--- NOTE | 2019-09-06 09:43 | PN ---
S CIWA - CIWA Score Nausea/Vomitin-Mild Nausea/No Vomiting Muscle Tremors: 3 Anxiety: 2 Agitation: 0-Normal Activity Paroxysmal Sweats: No Perspiration Orientation: 0-Oriented Tacttile Disturbances: 0-None Auditory Disturbances: 0-None Visual Disturbances: 0-None Headache: 1-Very Mild CIWA-Ar Total Score: 7 BHS Progress Note (SOAP) Subjective: Doing well concerned about high BP- pt on cardura 4mg- increased yesterday. On norvasc 10mg. O: Vital Signs - 24 hr 09/05/19 09/05/19 09/05/19 13:23 17:28 21:18 Temperature 97.5 F L 98.2 F 98.1 F Pulse Rate 77 83 84 Respiratory 18 18 18 Rate Blood Pressure 167/109 H 155/99 146/97 09/06/19 09/06/19 09/06/19 00:30 03:47 07:58 Temperature 97.3 F L Pulse Rate 75 Respiratory 18 18 18 Rate Blood Pressure 120/68 Laboratory Tests 09/03/19 09/03/19 09/03/19 07:40 07:40 07:40 WBC 4.9 RBC 4.68 Hgb 14.7 Hct 42.7 MCV 91.1 MCH 31.3 MCHC 34.3 RDW 13.6 Plt Count 207 MPV 9.0 Sodium 142 Potassium 3.2 L Chloride 107 Carbon Dioxide 28 Anion Gap 7 L BUN 18.4 H Creatinine 1.4 H Est GFR (CKD-EPI)AfAm 66.95 Est GFR (CKD-EPI)NonAf 57.76 Random Glucose 111 H Fasting Glucose Calcium 10.0 Total Bilirubin 0.5 AST 15 ALT 27 Alkaline Phosphatase 53 Total Protein 6.4 Albumin 3.7 RPR Titer Nonreactive 09/04/19 09/04/19 08:00 08:00 WBC RBC Hgb Hct MCV MCH MCHC RDW Plt Count MPV Sodium 144 Potassium 3.7 Chloride 110 H Carbon Dioxide 30 Anion Gap 4 L BUN 18.9 H Creatinine 1.0 Est GFR (CKD-EPI)AfAm 100.55 Est GFR (CKD-EPI)NonAf 86.76 Random Glucose 106 Fasting Glucose 107 H Calcium 9.8 Total Bilirubin AST ALT Alkaline Phosphatase Total Protein Albumin RPR Titer a/p: Continue alcohol detox d/c tomorrow to rehab here BP- better controlled today= yesterday increased Cardura to 4mg
[2019-09-06] MEDS ORDERED: ASPIRIN 81 MG CHEWABLE TABLETS PO SCH (10:00)
[2019-09-06 10:06] VITALS: BP 150/103; PULSE 83; TEMP 97.7
[2019-09-06] MEDS: POTASSIUM CHLORIDE TABS 20 MEQ TABLET.ER (FP) PO SCH (11:15)
[2019-09-06] MEDS: PRENATAL VITAMINS W/ FOLIC ACID TABLET (FP) PO SCH (11:15)
[2019-09-06] MEDS: amLODIPine BESYLATE 10 MG TABLET (FP) PO SCH (11:15)
--- NOTE | 2019-09-06 11:31 | DS ---
[facility] Detox Discharge Summary Admission Date: 09/02/19 Discharge Date: 09/06/19 - History Present History: Alcohol Dependence Pertinent Past History: Pt completed detox for AUD. Doing well concerned about high BP- pt on cardura 4mg- increased dose yesterday. On norvasc 10mg. Monitor BP- if still high can increase dose/add meds. Pt is vegan. Added B12. O: Vital Signs - 24 hr 09/05/19 09/05/19 09/05/19 13:23 17:28 21:18 Temperature 97.5 F L 98.2 F 98.1 F Pulse Rate 77 83 84 Respiratory 18 18 18 Rate Blood Pressure 167/109 H 155/99 146/97 09/06/19 09/06/19 09/06/19 00:30 03:47 07:58 Temperature 97.3 F L Pulse Rate 75 Respiratory 18 18 18 Rate Blood Pressure 120/68 09/06/19 09/06/19 10:06 10:52 Temperature 97.7 F 97.7 F Pulse Rate 83 83 Respiratory 16 16 Rate Blood Pressure 150/103 H 150/103 H a/pAUD- completed detox BP- monitor and increase dose as needed. pt is vegan- added B12 today - Physical Exam Results Vital Signs: Vital Signs Temperature 97.7 F 09/06/19 10:52 Pulse Rate 83 09/06/19 10:52 Respiratory Rate 16 09/06/19 10:52 Blood Pressure 150/103 H 09/06/19 10:52 O2 Sat by Pulse Oximetry (%) - Treatment Hospital Course: Detox Protocol Followed, Detoxed Safely, Responded well, Discharged Condition Good, Rehab Referral Accepted - Medication Discharge Medications: Ambulatory Orders Aspirin [ASA -] 81 mg PO DAILY #14 tab.chew 08/26/18 Amlodipine Besylate [Norvasc -] 10 mg PO DAILY #30 tablet 04/14/19 Rosuvastatin Calcium [Crestor] 20 mg PO HS 14 Days #30 tablet 04/14/19 Clonazepam 1 mg PO TID PRN 09/02/19 Doxazosin Mesylate [Cardura -] 2 mg PO HS 09/02/19 Fluoxetine HCl [Prozac] 40 mg PO DAILY 09/02/19 hydrALAZINE HCL [Apresoline -] 75 mg PO TID 09/02/19
[2019-09-07] MEDS ORDERED: chlordiazePOXIDE HCL 10 MG CAPSULE PO ONE (05:00)
[2019-09-07] MEDS ORDERED: CYANOCOBALAMIN 1,000 MCG TABLET (FP) PO SCH (10:00)
== END 2019-09-06 14:07 | disposition other institution (70) | DRG 774 ==
LOC: YASAS 12:35 → Y6N 16:48
PROVIDERS: ADMIT Allergy & Immunology; ATTEND Allergy & Immunology
PROC: HZ2ZZZZ Detoxification Services for Substance Abuse Treatment (ICD-10-PCS; principal; 2019-09-02)
DX: F10.230 Alcohol dependence with withdrawal, uncomplicated (principal); F14.20 Cocaine dependence, uncomplicated; F12.20 Cannabis dependence, uncomplicated; F33.1 Major depressive disorder, recurrent, moderate; F43.10 Post-traumatic stress disorder, unspecified; I10 Essential (primary) hypertension; E78.5 Hyperlipidemia, unspecified; E21.3 Hyperparathyroidism, unspecified; I69.398 Other sequelae of cerebral infarction; R25.1 Tremor, unspecified; E66.9 Obesity, unspecified; Z68.32 Body mass index [BMI] 32.0-32.9, adult; Z87.891 Personal history of nicotine dependence
CPT/HCPCS: 36415; 80048; 80053; 82947; 85027; 86593

== ENCOUNTER 2019-09-06 14:53 | Inpatient (IN) | payer OTHER ==
[2019-09-06 15:48] VITALS: BP 144/98; PULSE 84; TEMP 98.4
[2019-09-06] MEDS ORDERED: guaiFENesin 200 MG/10 ML 10 ML UNIT-DOSE CUPS PO PRN (16:22)
[2019-09-06] MEDS ORDERED: hydrOXYzine PAMOATE 50 MG CAPSULE (FP) PO PRN (16:22)
[2019-09-06] MEDS ORDERED: MAGNESIUM HYDROX 2400MG/30ML ORAL SUSPENSION 30 ML CUP PO PRN (16:22)
[2019-09-06] MEDS ORDERED: P-EPHED 60MG/TRIPROLIDI 2.5MG TABLET PO PRN (16:22)
[2019-09-06] MEDS ORDERED: LOPERAMIDE HCL 2 MG CAPSULE PO PRN (16:22)
[2019-09-06] MEDS ORDERED: ACETAMINOPHEN 325 MG TABLET (FP) PO PRN (16:22)
[2019-09-06] MEDS ORDERED: MENTHOL/PHENOL 1 EACH UD MM PRN (16:22)
[2019-09-06] MEDS ORDERED: MAG HYDROX/AL HYDROX/SIMETH 30 ML UNIT-DOSE CUP PO PRN (16:22)
[2019-09-06] MEDS ORDERED: IBUPROFEN 400 MG TABLET (FP) PO PRN (16:22)
[2019-09-06] MEDS ORDERED: MAGNESIUM CITRATE 300 ML BOTTLE PO PRN (16:22)
--- NOTE | 2019-09-06 16:22 | HP ---
[facility] Rehab Assess/Revision - Admission History Admitted to Rehab from: [facility] Date of Admission to Rehab: 09/06/19 - Vital signs Vital Signs: Vital Signs Period Temp Pulse Resp BP Sys/Khanna Pulse Ox Last 24 Hr 98.4 F 84 20 144/98 - Findings Detox History & Physical reviewed: Yes Concur with findings: Yes Comments/Additional Findings: for rehab as protocol Inpatient Rehab Admission - Rehab Decision to Admit Inpatient rehab admission?: Yes - Initial Determination Are CD services needed?: Yes Free of communicable disease: Yes Not in need of hospitalization: Yes - Rehab Admission Criteria Previous failed treatment: Yes Poor recovery environment: Yes Comorbidities: Yes Lacks judgement: No Patient is meeting Inpatient Rehab admission criteria:: Yes
[2019-09-06] MEDS ORDERED: THIAMINE HCL 100 MG TABLET (FP) PO SCH (22:00)
[2019-09-06] MEDS ORDERED: MELATONIN 5 MG TABLETS PO PRN (22:00)
--- NOTE | 2019-09-07 02:50 | PN ---
[facility] Progress Note Note: Md's note: INFORMED THAT THE PT. WANTS TO SIGN OUT AMA FOR PERSONAL REASONS ADVISED NOT TO DO SO AT THIS TIME BUT HE WANTS TO SIGN OUT. SO, HE SIGNED OUT AMA AND ABOUT TO LEAVE THE FACILITY SOON. RECOMMENDED TO F/U WITH PMD AND OUT PT. PROGRAMS. PROVIDER: TOMAS MAY MD
[2019-09-07] MEDS ORDERED: amLODIPine BESYLATE 10 MG TABLET (FP) PO SCH (10:00)
[2019-09-07] MEDS ORDERED: ASPIRIN 81 MG CHEWABLE TABLETS PO SCH (10:00)
[2019-09-07] MEDS ORDERED: PRENATAL VITAMINS W/ FOLIC ACID TABLET (FP) PO SCH (10:00)
== END 2019-09-07 03:07 | disposition left against medical advice (07) | DRG 770 ==
LOC: YASAS 14:53 → Y3W 14:54
PROVIDERS: ADMIT Neuromusculoskeletal Medicine & OMM; ATTEND Neuromusculoskeletal Medicine & OMM
PROC: HZ42ZZZ Group Counseling for Substance Abuse Treatment, Cognitive-Behavioral (ICD-10-PCS; principal; 2019-09-06)
DX: F10.20 Alcohol dependence, uncomplicated (principal); F14.20 Cocaine dependence, uncomplicated; F12.20 Cannabis dependence, uncomplicated; I10 Essential (primary) hypertension; E78.5 Hyperlipidemia, unspecified; E21.3 Hyperparathyroidism, unspecified; I69.398 Other sequelae of cerebral infarction; E66.9 Obesity, unspecified; Z68.32 Body mass index [BMI] 32.0-32.9, adult; Z87.891 Personal history of nicotine dependence